=== PATIENT | male | born 1945 | race African-American/Black ===

== ENCOUNTER 2020-01-15 08:01 | Outpatient (CLI) | payer OTHER, SELFPAY ==
[2020-01-15 09:08] LABS: Hematocrit 34.2 % (42.0-52.0); Hemoglobin 11.3 g/dL (14.0-18.0); Mean Corpuscular Hemoglobin 28.2 pg (26-34); Mean Corpuscular Volume 85.3 fl (80-100); Mean Platelet Volume 10.4 fl (7.4-10.4); Platelet Count Result 267 k/mm3 (150-375); Red Blood Count 4.01 M/mm3 (4.6-6.20); Red Cell Distribution Width 13.7 % (11.5-14.5); White Blood Count 6.7 K/mm3 (4.5-10.0)
[2020-01-15 09:09] LABS: Alanine Aminotransferase 10 U/L (4-50); Albumin Level 4.1 g/dL (3.5-5.1); Alkaline Phosphatase 54 U/L (38-126); Aspartate Amino Transferase 17 U/L (17-59); Bilirubin,Total 0.5 mg/dL (0.2-1.3); Blood Urea Nitrogen 18 mg/dL (9-20); Calcium 8.7 mg/dL (8.4-10.2); Carbon Dioxide 24 mmol/L (22-30); Chloride 111 mmol/L (98-107); Cholesterol 240 mg/dL (0-200); Estimated Glomerular Filt Rate 51; Glucose 87 mg/dL (75-110); HDL Direct 36 mg/dL; Potassium 4.2 mmol/L (3.4-5.0); Sodium 141 mmol/L (137-145); Triglycerides 218 mg/dL (<150); Uric Acid 6.6 mg/dL (3.5-8.5)
[2020-01-15 09:20] LABS: LDL Cholesterol Direct 144 mg/dL
[2020-01-15 09:39] LABS: Prostate Specific Antigen 4.1 ng/mL (< OR = 4.0)
[2020-01-15 09:57] LABS: Vitamin D 25 Hydroxy 26.8 ng/mL
== END 2020-01-15 08:02 | disposition home or self-care (01) ==
PROVIDERS: PCP Internal Medicine; Visit Provider Nurse Practitioner
DX: D64.9 Anemia, unspecified (principal); E78.5 Hyperlipidemia, unspecified; N40.0 Benign prostatic hyperplasia without lower urinary tract symptoms; M1A.9XX0 Chronic gout, unspecified, without tophus (tophi); E55.9 Vitamin D deficiency, unspecified
CPT/HCPCS: 36415; 80053; 80061; 82306; 84153; 84550; 85027

== ENCOUNTER 2020-04-12 07:51 | Outpatient (CLI) | payer OTHER, SELFPAY ==
[2020-04-12 08:12] LABS: Hematocrit 33.6 % (42.0-52.0); Hemoglobin 11.4 g/dL (14.0-18.0)
[2020-04-12 08:25] LABS: Blood Urea Nitrogen 39 mg/dL (9-20); Calcium 8.7 mg/dL (8.4-10.2); Carbon Dioxide 22 mmol/L (22-30); Chloride 113 mmol/L (98-107); Cholesterol 249 mg/dL (0-200); Estimated Glomerular Filt Rate 37; Glucose 106 mg/dL (75-110); HDL Direct 43 mg/dL; Potassium 4.7 mmol/L (3.4-5.0); Sodium 141 mmol/L (137-145); Triglycerides 166 mg/dL (<150)
[2020-04-12 08:36] LABS: LDL Cholesterol Direct 149 mg/dL
[2020-04-12 08:53] LABS: Prostate Specific Antigen 4.6 ng/mL (< OR = 4.0)
[2020-04-12 09:23] LABS: Parathyroid Intact 122.5 pg/mL (7.5-53.5)
[2020-04-12 10:53] LABS: Vitamin D 25 Hydroxy 35.9 ng/mL
== END 2020-04-12 07:52 | disposition home or self-care (01) ==
LOC: ANHLAB 07:53
PROVIDERS: PCP Internal Medicine; Visit Provider Internal Medicine
DX: E78.5 Hyperlipidemia, unspecified (principal); E55.9 Vitamin D deficiency, unspecified; R97.20 Elevated prostate specific antigen [PSA]; D64.9 Anemia, unspecified; I12.9 Hypertensive chronic kidney disease with stage 1 through stage 4 chronic kidney disease, or unspecified chronic kidney disease; N18.3 Chronic kidney disease, stage 3 (moderate)
CPT/HCPCS: 36415; 80048; 80061; 82306; 82310; 83970; 84153; 85014; 85018

== ENCOUNTER 2020-05-19 02:24 | Outpatient (CLI) | payer OTHER, SELFPAY ==
[2020-05-19 18:38] LABS: SARS-CoV-2 RNA PCR Negative
== END 2020-05-19 02:25 | disposition home or self-care (01) ==
LOC: ANHCOVIDDT 02:24
PROVIDERS: PCP Internal Medicine; Visit Provider Internal Medicine Gastroenterology
DX: Z01.812 Encounter for preprocedural laboratory examination (principal); Z20.828 Contact with and (suspected) exposure to other viral communicable diseases
CPT/HCPCS: 87635; C9803; U0003

== ENCOUNTER 2020-05-21 00:25 | Day surgery (SDC) | payer OTHER, SELFPAY ==
[2020-05-12 14:21] VITALS: BMI 30.4
--- NOTE | 2020-05-21 07:33 | P.PNAN_ITS ---
Anes - Initial Pre Proc Eval Procedure: Operation Date: 05/21/20 09:00 Proposed Procedures p Screening Colonoscopy - José Stanton MD Date/Time: 05/21/20 07:33 Surgeon: José Stanton MD Pre Op Diagnosis: Neoplasm Screening Patient Data Age: 75 Gender: M Height: 1.7 m Weight: 88 kg Allergies Allergy/AdvReac Type Severity Reaction Status Date / Time No Known Allergies Allergy Mild Verified 05/21/20 07:39 Home Medications Medication Instructions Recorded Confirmed Type amlodipine 10 mg tablet See Rx Instructions .ROUTE 04/30/20 05/21/20 Rx .COMPLEX #90 tablet lisinopril 40 mg tablet See Rx Instructions .ROUTE 04/30/20 05/21/20 Rx .COMPLEX #90 tablet Patient hx anesthesia problems: none Family hx anesthesia problems: none PMFSH Past Medical History Medical History (Updated 05/21/20 @ 07:34 by Kuldeep Rodriguez MD) Anemia BPH w/o urinary obs/LUTS Chronic kidney disease, stage 3 Essential (primary) hypertension Gout, unspecified Mixed hyperlipidemia Obesity Tobacco use disorder Social History Social History Smoking status: Smoker, status unknown Smoking end date: 10/01/14 Alcohol intake: current Anes - Eval Final PreProcedure Day of Procedure 05/21/20 07:33 Patient weight: obese Heart: regular rate and rhythm Lungs: clear to auscultation and normal air movement Airway: Mallampati scale class II Neurological: alert and oriented Last oral intake: >/= 8 hours ASA classification: III Emergent: no Anesthetic plan: proceed Anesthesia type and monitoring: general GIVS Informed Consent: The patient's anesthetic plan and its attendant risks and benefits were discussed with the patient/family/POA. Questions were solicited and answers provided to the satisfaction of the patient/family/POA.
[2020-05-21 07:40] VITALS: BP 153/85; PULSE 98; RESP 18; TEMP 37.1; O2SAT 100
[2020-05-21] MEDS: LACTATED RINGERS 1,000 ML 150 ML IV CONT (07:50)
[2020-05-21 07:52] VITALS: BMI 28.0
--- NOTE | 2020-05-21 08:39 | P.HP_ITS ---
History of Present Illness History of Present Illness Consent: Risks, benefits, and alternatives have been discussed and questions answered. Patient agrees to proceed with procedure. Chief complaint: Neoplasm Screening Narrative: Tramaine Urban is a 75 year old male Here for screening colonoscopy. He had she had multiple large polyps in 2013. Current all but 1 was removed. That 1 was biopsied and consistent with a villous adenoma. Surgery was advised but apparently he declined. He was sent a letter for follow-up examination a year after that but did not respond. [facility] Past Medical History Medical History Anemia BPH w/o urinary obs/LUTS Chronic kidney disease, stage 3 Essential (primary) hypertension Gout, unspecified Mixed hyperlipidemia Obesity Tobacco use disorder Family History Family History Sibling Patient's sister is in good health Patient's brother is in good health Father Family history of malignant neoplasm Patient's father is Mother Family history of malignant neoplasm Patient's mother is Social History Social History Smoking status: Smoker, status unknown Smoking end date: 10/01/14 Alcohol intake: current Meds Home Medications and Allergies Home Medications Medication Instructions Recorded Confirmed Type amlodipine 10 mg tablet See Rx Instructions .ROUTE 04/30/20 05/21/20 Rx .COMPLEX #90 tablet lisinopril 40 mg tablet See Rx Instructions .ROUTE 04/30/20 05/21/20 Rx .COMPLEX #90 tablet Allergies Allergy/AdvReac Type Severity Reaction Status Date / Time No Known Allergies Allergy Mild Verified 05/21/20 07:39 Vital Signs Vital Signs - 24 hr 05/21/20 07:40 Temperature 37.1 C Pulse Rate 98 Respiratory Rate 18 Blood Pressure 153/85 H Pulse Oximetry 100 Exam Resp: Auscultation: clear to auscultation bilaterally Cardio: Rate: regular rate Rhythm: regular rhythm GI: GI Palp: Yes Soft to palpation and No Tenderness to palpation present (GI) Assessment and Plan Assessment and plan (1) Personal history of colonic polyps: Code(s): Z86.010 - Personal history of colonic polyps Status: Acute Assessment and Plan: Colonoscopy with possible biopsy or polypectomy or cautery or injection of substances.
--- NOTE | 2020-05-21 09:17 | SUR.OPER ---
RESOLUTION CLIP X1 TO DESCENDING COLON LOT [id number]
[2020-05-21 09:23] VITALS: BP 89/56; PULSE 66; RESP 32; O2SAT 100
[2020-05-21 09:33] VITALS: BP 115/68; PULSE 57; RESP 28; O2SAT 100
[2020-05-21 09:43] VITALS: BP 131/62; PULSE 59; RESP 25; O2SAT 100
== END 2020-05-21 09:58 | disposition home or self-care (01) ==
PROVIDERS: PCP Internal Medicine; Visit Provider Internal Medicine Gastroenterology
PROC: 0DJD8ZZ Inspection of Lower Intestinal Tract, Via Natural or Artificial Opening Endoscopic (ICD-10-PCS; CPT 45378; principal; 2020-05-21 09:00)
DX: Z12.11 Encounter for screening for malignant neoplasm of colon (principal); C18.6 Malignant neoplasm of descending colon; C18.5 Malignant neoplasm of splenic flexure; D12.3 Benign neoplasm of transverse colon; D12.5 Benign neoplasm of sigmoid colon; D12.2 Benign neoplasm of ascending colon; K64.8 Other hemorrhoids; I12.9 Hypertensive chronic kidney disease with stage 1 through stage 4 chronic kidney disease, or unspecified chronic kidney disease; N18.3 Chronic kidney disease, stage 3 (moderate); E78.2 Mixed hyperlipidemia; D64.9 Anemia, unspecified; M10.9 Gout, unspecified; N40.0 Benign prostatic hyperplasia without lower urinary tract symptoms; E66.9 Obesity, unspecified; Z68.28 Body mass index [BMI] 28.0-28.9, adult; Z87.891 Personal history of nicotine dependence
CPT/HCPCS: 45385; 45380; 45381; 88305; J2704; J7120

== ENCOUNTER 2021-02-15 08:22 | Outpatient (CLI) | payer OTHER, SELFPAY ==
[2021-02-15 09:04] LABS: Basophils Percent Auto 0.1 % (0.2-1.2); Eosinophils Percent Auto 0.3 % (0-4.4); Hemoglobin 11.2 g/dL (14.0-18.0); Immature Granulocyte Absolute 0.01 K/mm3 (0.00-0.031); Immature Granulocyte Percent A 0.1 % (0-0.5); Lymphocytes Absolute Auto 2.19 K/mm3 (0.9-3.2); Mean Corpuscular HGB Conc 32.9 g/dl (32-36); Mean Corpuscular Hemoglobin 28.1 pg (26-34); Mean Corpuscular Volume 85.2 fl (80-100); Mean Platelet Volume 9.8 fl (7.4-10.4); Monocytes Absolute Auto 0.5 K/mm3 (0.1-0.6); Monocytes Percent Auto 7.3 % (2.6-8.5); Neutrophils Absolute Auto 4.1 K/mm3 (1.3-6.7); Neutrophils Percent Auto 60.2 % (45.5-73.1); Platelet Count Result 269 k/mm3 (150-375); Red Blood Count 3.99 M/mm3 (4.6-6.20); White Blood Count 6.8 K/mm3 (4.5-10.0)
[2021-02-15 09:19] LABS: Sodium 143 mmol/L (137-145)
[2021-02-15 09:26] LABS: Alanine Aminotransferase 12 U/L (4-50); Albumin Level 4.1 g/dL (3.5-5.1); Alkaline Phosphatase 60 U/L (38-126); Anion Gap 4 mmol/L (8-16); Aspartate Amino Transferase 22 U/L (17-59); Bilirubin,Total 0.3 mg/dL (0.2-1.3); Blood Urea Nitrogen 28 mg/dL (9-20); Calcium 9.4 mg/dL (8.4-10.2); Carbon Dioxide 27 mmol/L (22-30); Chloride 112 mmol/L (98-107); Cholesterol 220 mg/dL (0-200); Estimated Glomerular Filt Rate 45; Glucose 67 mg/dL (75-110); HDL Direct 54 mg/dL; Potassium 4.5 mmol/L (3.4-5.0); Triglycerides 153 mg/dL (<150); Uric Acid 7.2 mg/dL (3.5-8.5)
[2021-02-15 09:31] LABS: LDL Cholesterol Direct 133 mg/dL
[2021-02-15 09:42] LABS: Parathyroid Intact 134.9 pg/mL (7.5-53.5)
[2021-02-15 09:49] LABS: Vitamin D 25 Hydroxy 20.1 ng/mL
[2021-02-15 09:51] LABS: Prostate Specific Antigen 5.2 ng/mL (< OR = 4.0)
== END 2021-02-15 08:23 | disposition home or self-care (01) ==
PROVIDERS: PCP Internal Medicine; Visit Provider Nurse Practitioner
DX: Z12.5 Encounter for screening for malignant neoplasm of prostate (principal); N18.30 Chronic kidney disease, stage 3 unspecified; R97.20 Elevated prostate specific antigen [PSA]; E78.2 Mixed hyperlipidemia; D64.9 Anemia, unspecified; M1A.9XX0 Chronic gout, unspecified, without tophus (tophi); E55.9 Vitamin D deficiency, unspecified
CPT/HCPCS: 36415; 80053; 80061; 82306; 83970; 84153; 84550; 85025; G0103

== ENCOUNTER 2021-11-16 18:34 | Inpatient (IN) | payer OTHER, SELFPAY ==
[2021-11-16] VITALS (31 sets, daily range): BP systolic 101–129; BP diastolic 49–59; PULSE 50–61; RESP 14–29; TEMP 36.6; O2SAT 80–100
--- NOTE | ~2021-11-16 | XR_ITS ---
EXAMINATION: XR chest 1V portable DATE: 11/16/2021 19:35 INDICATION: Cough. COVID positive. TECHNIQUE: frontal view of the chest was obtained. COMPARISON: None FINDINGS: Elevation of the left hemidiaphragm. Relatively dense opacity with sharply defined margins projecting over the azygos esophageal recess of the medial left lung base most likely related to either a hiata l hernia or thoracic endplate osteophytes related to diffuse idiopathic skeletal hyperostosis (DISH). Additional dense nodular opacity projecting over the more lateral left hemidiaphragm consistent with calcified old granulomatous disease. No other airspace opacities, pulmonary edema, pleural effusion or pneumothorax. The cardiomediastinal silhouette is normal. IMPRESSION: 1. No acute cardiopulmonary disease. Reviewed, dictated and finalized at location A. [employer]
--- NOTE | ~2021-11-16 | NM_ITS ---
EXAMINATION: NM pulmonary perfusion DATE: 11/16/2021 23:23 INDICATION: Dyspnea. TECHNIQUE: 2.9 mCi Tc-99m MAA by intravenous route. Scintigraphic images of the chest were obtained. COMPARISON: Chest radiograph dated 11/16/2021 FINDINGS: Large perfusion defect involving the posterior segment of the right upper lobe and posterior basilar segment of the right lower lobe. Moderate-sized perfusion defects at the lateral segment of the right middle lobe and small perfusion defect at the posterior basilar segment of the left lower lobe. IMPRESSION: 1. High probability for pulmonary embolism. Reviewed, dictated and finalized at location A. [employer]TE M[employer]ER
--- NOTE | ~2021-11-16 | CT_ITS ---
EXAMINATION: CT abdomen pelvis wo con DATE: 11/16/2021 21:24 INDICATION: Abdominal pain TECHNIQUE: Computed tomography (CT) of the abdomen and pelvis was performed without intravenous contr ast. Automated exposure control and iterative reconstruction technique were employed. The dose-length product was 460.89 mGy-cm. COMPARISON: None FINDINGS: Elevation of the left hemidiaphragm with mild discoid atelectasis in the left lower lobe. Heart size is normal. Atherosclerotic coronary artery calcific location. No pericardial or pleural effusion. Angela er, gallbladder, spleen, pancreas, bilateral adrenal glands and left kidney are normal. 2 cm cyst at the interpolar region of the right kidney. There is a diverting transverse colostomy at the midline o f the upper abdomen. Small bowel and appendix are normal. Bladder is normal. Small amount of ascites in the deep pelvis. No abscess or free intraperitoneal gas. No pathologically enlarged abdominal or p elvic lymphadenopathy. Diffuse body wall edema. There are bridging osteophytes at multiple levels in the spine, consistent with diffuse idiopathic skeletal hyperostosis (DISH). Heterotopic ossification along the left iliac crest. IMPRESSION: 1. Nonspecific small amount of ascites in the deep pelvis. No other acute intra-abdominal/pelvic proc ess. Reviewed, dictated and finalized at location A. [employer] IMPRESSION: 1. Nonspecific small amount of ascites in the deep pelvis. No other acute intra -abdominal/pelvic process.
[2021-11-16 20:42] LABS: Basophils Percent Auto 0.2 % (0.2-1.2); Eosinophils Percent Auto 0.4 % (0-4.4); Hematocrit 24.8 % (42.0-52.0); Hemoglobin 8.1 g/dL (14.0-18.0); Immature Granulocyte Absolute 0.01 K/mm3 (0.00-0.031); Immature Granulocyte Percent A 0.2 % (0-0.5); Lymphocytes Absolute Auto 1.79 K/mm3 (0.9-3.2); Lymphocytes Percent Auto 38.4 % (18.3-44.2); Mean Corpuscular HGB Conc 32.7 g/dl (32-36); Mean Corpuscular Hemoglobin 29.1 pg (26-34); Mean Corpuscular Volume 89.2 fl (80-100); Mean Platelet Volume 8.9 fl (7.4-10.4); Monocytes Absolute Auto 0.3 K/mm3 (0.1-0.6); Monocytes Percent Auto 6.2 % (2.6-8.5); Neutrophils Absolute Auto 2.5 K/mm3 (1.3-6.7); Neutrophils Percent Auto 54.6 % (45.5-73.1); Platelet Count Result 290 k/mm3 (150-375); Red Blood Count 2.78 M/mm3 (4.6-6.20); Red Cell Distribution Width 16.1 % (11.5-14.5); White Blood Count 4.7 K/mm3 (4.5-10.0)
[2021-11-16 20:52] LABS: Prothrombin Time 13.1 Seconds (11.1-14.7)
[2021-11-16 20:53] LABS: Partial Thromboplastin Time 34.4 SECONDS (22.3-36.8)
[2021-11-16 20:54] LABS: Alanine Aminotransferase 17 U/L (4-50); Alkaline Phosphatase 57 U/L (38-126); Anion Gap 9 mmol/L (8-16); Aspartate Amino Transferase 21 U/L (17-59); Bilirubin,Total 0.2 mg/dL (0.2-1.3); Blood Urea Nitrogen 34 mg/dL (9-20); Calcium 8.5 mg/dL (8.4-10.2); Carbon Dioxide 15 mmol/L (22-30); Chloride 119 mmol/L (98-107); Estimated CRCL calculation 29 ml/min; Estimated Glomerular Filt Rate 42; Glucose 103 mg/dL (65-110); Potassium 3.6 mmol/L (3.4-5.0); Sodium 143 mmol/L (137-145)
[2021-11-16 21:05] LABS: Platelet Estimate Adequate (Adequate)
[2021-11-16 21:06] LABS: Atypical Lymphocytes Present; Ovalocytes 1+ (NORMAL); Target Cells 1+ (NORMAL)
[2021-11-16 21:49] LABS: Add Urine Microscopic? YES; Appearance Urine Clear (Clear); Bilirubin Urine Negative (Negative); Blood Urine Negative (Negative); Color Urine Yellow (Yellow); Glucose Urine UA Negative (Negative); Ketones Urine Negative (Negative); Leukocyte Esterase Ur Negative LEU/UL (Negative); Nitrate Urine Negative (Negative); Protein Urine Negative (Negative); RBC Urine 0-2 /hpf (0-2); Specific Grav Ur 1.011 (1.001-1.035); Urobilinogen Urine Negative mg/dL (<2.0); WBC Urine 0-3 /hpf
[2021-11-17] VITALS (15 sets, daily range): BP systolic 103–164; BP diastolic 40–72; PULSE 53–64; RESP 16–26; TEMP 36.2–36.9; O2SAT 93–100
--- NOTE | 2021-11-17 00:04 | ECG_ITS ---
Measurements Intervals [place] Rate: 68 P: 23 ID: [id number] QRS: 54 QRSD: 89 T: 0 QT: 358 QTc: 381 Interpretive Statements SINUS RHYTHM NONSPECIFIC ST & T-WAVE ABNORMALITY- DIFFUSE LEADS BASELINE ARTIFACT- I, II, III, AVR, AVL, AVF, V1, V3-V6 BORDERLINE ECG Electronically Signed On 11-17-2021 8:58:41 [employer] by Ugo Moraes D.O.
--- NOTE | 2021-11-17 00:15 | ED.GENADULT ---
HPI - General Adult General Chief complaint: Unspecified Stated complaint: colostomy bag leaking Time Seen by Provider: 11/16/21 19:24 Source: RN notes reviewed History of Present Illness HPI narrative: Patient presents emergency department from [facility] via EMS for multiple complaints. Initial call was for patient's ostomy bag leaking as well as the fact that the patient was diagnosed with COVID-19 on the he had lab work drawn today that showed an elevated creatinine as well as anemia and an elevated D-dimer secondary to the elevated beta D-dimer the patient had had Eliquis ordered but is unsure if he had a dose patient denies any fevers or chills denies any chest pain or shortness of breath was recently at [facility] for a bowel obstruction denies any abdominal pain at this time Related Data Home Medications Medication Instructions Recorded Confirmed A To Z Multivitamin 11/16/21 Eucerin 11/16/21 Iron Plus Vitamin C 11/16/21 Metamucil 11/16/21 Zinc-50 11/16/21 apixaban [Eliquis] 2.5 mg PO BID 11/16/21 calcium carbonate [Oyster Shell 500 mg PO DAILY 11/16/21 Calcium] Allergies Allergy/AdvReac Type Severity Reaction Status Date / Time No Known Allergies Allergy Mild Verified 11/16/21 18:50 Review of Systems Review of Systems: Gen.: Denies fevers or chills ENT: Denies congestion Respiratory: Denies shortness of breath or cough CV: Denies chest pain or palpitations GI: Denies abdominal pain nausea, emesis or diarrhea Musculoskeletal: Denies back pain or muscle pain Neuro: Denies numbness, tingling, weakness or focal weakness Skin: Denies rash Except as documented, all other systems reviewed and negative [facility] Past Medical History Medical History (Updated 11/17/21 @ 02:35 by Barber Bowman DO) Anemia BPH w/o urinary obs/LUTS Chronic kidney disease, stage 3 Elevated parathyroid hormone Elevated PSA Essential (primary) hypertension Gout, unspecified Mixed hyperlipidemia Obesity Tobacco use disorder Family History Family History Sibling Patient's sister is in good health Patient's brother is in good health Father Family history of malignant neoplasm Patient's father is Mother Family history of malignant neoplasm Patient's mother is Social History Social History Smoking packs per day: 0.25 Smoking cigarettes per day: 5.0 Years smoked: 35 Smoking pack-years: 8.75 Smoking status: Current every day smoker Tobacco type: cigarettes Second hand tobacco smoke exposure: No Alcohol intake: former Substance use: never Exam Narrative: APPEARANCE: No acute distress, nontoxic, resting in bed EYES: EOMI HEENT: Normocephalic, atraumatic, OMM RESPIRATORY: No respiratory distress Clear to auscultation bilaterally with no rhonchi wheezing or rales. CARDIOVASCULAR: Regular rate and rhythm without murmurs rubs or gallops. ABDOMINAL: Soft, nontender, nondistended, no rebound or guarding ostomy present with output MUSCULOSKELETAl: Moves all extremities. No clubbing, cyanosis or edema. NEURO: Awake and alert. Following commands, speech normal, no focal deficits SKIN:: Warm, dry. No rashes lesions or abrasions PSYCHIATRIC: Normal affect/mood, Course Course Emergency Course: Reviewed old records and records [facility] patient had a hemoglobin of 9.1 on the 12th and 7.9 today patient's creatinines are normally in current range D-dimer was [address] Roblero is requesting VQ scan of the patient Discussed with Dr. Maldonado presentation work-up agrees with admission Discussed with patient and family results of workup and diagnosis. Discussed need for admission. Patient and family understand and agree to current treatment plan Called [facility] the patient did not receive any Eliquis today we will give Lo
--- NOTE | 2021-11-17 00:21 | PC.NURSE ---
VOICE MAIL LEFT TO CLARIFY IF THE PATIENT DID RECEIVE ELIQUIS TODAY OR NOT.
[2021-11-17] MEDS: ENOXAPARIN 80 MG/0.8 ML SYRINGE 72 MG SUB-Q (03:07)
--- NOTE | 2021-11-17 04:44 | ADMGEN ---
This patient, Tramaine Urban, was admitted to [facility] Surg Room 310-01. Patient/family oriented to hospital policies and general routines including ID bracelet, bed and alarms, visiting hours, pain management, procedures, bathroom and other care routines, personal items, smoking policy, room service/diet, and visiting hours. Information on how to activate the Rapid Response Team has been discussed. Patient/Family are encouraged to report perceived risks to care and to ask questions if they do not understand what they are told or what they should do.
[2021-11-17 07:08] LABS: Hematocrit 26.8 % (42.0-52.0); Hemoglobin 8.9 g/dL (14.0-18.0)
[2021-11-17 09:05] LABS: Hematocrit 26.9 % (42.0-52.0); Hemoglobin 8.9 g/dL (14.0-18.0); Mean Corpuscular HGB Conc 33.1 g/dl (32-36); Mean Corpuscular Volume 87.6 fl (80-100); Mean Platelet Volume 9.1 fl (7.4-10.4); Platelet Count Result 277 k/mm3 (150-375); Red Blood Count 3.07 M/mm3 (4.6-6.20); Red Cell Distribution Width 16.1 % (11.5-14.5); White Blood Count 4.8 K/mm3 (4.5-10.0)
[2021-11-17 09:17] LABS: Albumin Level 3.1 g/dL (3.5-5.1); Anion Gap 7 mmol/L (8-16); Blood Urea Nitrogen 32 mg/dL (9-20); Calcium 8.6 mg/dL (8.4-10.2); Carbon Dioxide 16 mmol/L (22-30); Chloride 120 mmol/L (98-107); Estimated CRCL calculation 26 ml/min; Estimated Glomerular Filt Rate 45; Glucose 80 mg/dL (65-110); Magnesium 1.9 mg/dL (1.6-2.3); Phosphorus 3.5 mg/dL (2.5-4.5); Potassium 3.1 mmol/L (3.4-5.0); Sodium 143 mmol/L (137-145)
[2021-11-17 09:46] LABS: INR 1.1; Prothrombin Time 13.6 Seconds (11.1-14.7)
[2021-11-17] MEDS: CALCIUM CARBONATE (OSCAL) 500 MG TABLET PO (10:15)
[2021-11-17] MEDS: allopurinoL 100 MG TABLET PO (10:15)
[2021-11-17] MEDS: SODIUM BICARBONATE TAB 650 MG TABLET PO ×2 (10:16→17:08)
[2021-11-17] MEDS: MULTIVITAMINS THERAPEUTIC TAB (*BKC) 1 TABLET PO (10:16)
[2021-11-17] MEDS: EUCERIN CREAM 120 GM JAR 1 APPLIC TOPICAL ×3 (10:16→17:08)
[2021-11-17] MEDS: REMDESIVIR 200 MG/NS 250 ML 200 MG/250 ML BAG 250 MG IVPB (10:16)
[2021-11-17] MEDS: PSYLLIUM POWDER PACKET 1 PACKET BY MOUTH (10:16)
[2021-11-17] MEDS: ZINC SULFATE 220 MG CAPSULE PO (10:16)
[2021-11-17] MEDS: SODIUM CHLORIDE 0.9% IV 1,000 ML 100 ML IV CONT ×2 (10:17→21:23)
[2021-11-17 10:40] LABS: Hematocrit 23.1 % (42.0-52.0); Hemoglobin 7.7 g/dL (14.0-18.0)
--- NOTE | 2021-11-17 14:19 | PM.IMHP ---
H&P: HPI History of Present Illness Date/Time: 11/17/21 14:19 ED-HPI narrative: Patient presents emergency department from [facility] via EMS for multiple complaints. Initial call was for patient's ostomy bag leaking as well as the fact that the patient was diagnosed with COVID-19 on the he had lab work drawn today that showed an elevated creatinine as well as anemia and an elevated D-dimer secondary to the elevated beta D-dimer the patient had had Eliquis ordered but is unsure if he had a dose patient denies any fevers or chills denies any chest pain or shortness of breath was recently at [facility] for a bowel obstruction denies any abdominal pain at this time. 11/17/2021 Interval history: patient with COVID-19 he is on room air does not require any oxygen, will start the patient remdesivir, Patient remains clinically stable, there was a concern patient is a colostomy bag patient was seen by wound care team spoke with the surgeon it was corrected about the bag is sealed, patient has a shama which do not need to be removed for another 6 weeks, patient is found to have pulmonary emboli in being treated Lovenox, patient was started on Eliquis, patient has a metabolic acidosis most likely secondary to acute kidney injury will gently hydrate the patient will start the patient on sodium bicarb and monitor, patient with anemia hemoglobin is dropping there is no obvious source of bleeding, will do stool Hemoccult, consult GI further recommendation to follow. Chief Complaint: COVID-19 Review of Systems Review of Systems: All systems reviewed & are unremarkable except as noted in HPI and below PMFSH Past Medical History Medical History (Updated 11/17/21 @ 02:35 by Barber Bowman DO) Anemia BPH w/o urinary obs/LUTS Chronic kidney disease, stage 3 Elevated parathyroid hormone Elevated PSA Essential (primary) hypertension Gout, unspecified Mixed hyperlipidemia Obesity Tobacco use disorder Family History Family History Sibling Patient's sister is in good health Patient's brother is in good health Father Family history of malignant neoplasm Patient's father is Mother Family history of malignant neoplasm Patient's mother is Social History Social History Smoking packs per day: 0.25 Smoking cigarettes per day: 5.0 Years smoked: 35 Smoking pack-years: 8.75 Smoking status: Smoker, status unknown Tobacco type: cigarettes Second hand tobacco smoke exposure: No Alcohol intake: former Substance use: unknown Spiritual care concerns: No Meds Home Medications and Allergies Home Medications Medication Instructions Recorded Confirmed Type allopurinol 100 mg tablet 100 mg PO DAILY #90 tablet 07/11/21 11/17/21 Rx A To Z Multivitamin 1 tablet PO DAILY 11/16/21 11/17/21 History Eucerin 1 applic TOPICAL TID 11/16/21 11/17/21 History Metamucil 3.4 g PO DAILY 11/16/21 11/17/21 History Zinc-50 50 mg PO DAILY 11/16/21 11/17/21 History apixaban [Eliquis] 2.5 mg PO BID 11/16/21 11/17/21 History calcium carbonate [Oyster Shell 500 mg PO DAILY 11/16/21 11/17/21 History Calcium] Allergies Allergy/AdvReac Type Severity Reaction Status Date / Time No Known Allergies Allergy Mild Verified 11/16/21 18:50 Vital Signs Vital Signs - 24 hr 11/16/21 18:47 11/16/21 18:48 11/16/21 19:00 Temperature 97.8 F Pulse Rate 60 59 L 57 L Respiratory Rate 28 H 24 H 24 H Blood Pressure 122/54 L 122/54 L Pulse Oximetry 100 100 100 11/16/21 19:01 11/16/21 19:15 11/16/21 19:16 Temperature Pulse Rate 59 L 56 L 56 L Respiratory Rate 28 H 29 H 24 H Blood Pressure 112/59 L 101/49 L Pulse Oximetry 100 100 100 11/16/21 19:30 11/16/21 19:32 11/16/21 19:45 Temperature Pulse Rate 60 61 57 L Respiratory Rate 18 26 H 26 H Blood Pressure 104/55 L Pulse
[2021-11-17] MEDS: ENOXAPARIN 80 MG/0.8 ML SYRINGE 70 MG SUB-Q (15:47)
[2021-11-17 16:43] LABS: Iron 34 ug/dL (49-181)
[2021-11-17 16:52] LABS: Percent Iron Saturation 20 % (20-50)
[2021-11-17 17:13] LABS: Folic Acid 9.5 ng/mL (2.76->20)
[2021-11-17 18:45] LABS: Hematocrit 20.8 % (42.0-52.0)
[2021-11-17 19:00] LABS: IFOB Positive Control Positive; Immunochemical Fecal Occult Bl Positive (N)
[2021-11-18] VITALS (15 sets, daily range): BP systolic 98–152; BP diastolic 44–69; PULSE 44–96; RESP 16–19; TEMP 36.4–37.2; O2SAT 94–100
[2021-11-18] MEDS: ENOXAPARIN 80 MG/0.8 ML SYRINGE 70 MG SUB-Q ×2 (02:30→15:59)
--- NOTE | 2021-11-18 04:33 | ECG_ITS ---
Measurements Intervals [place] Rate: 54 P: 73 MD: 173 QRS: 52 QRSD: 90 T: 262 QT: 382 QTc: 363 Interpretive Statements SINUS BRADYCARDIA BORDERLINE ST-T WAVE ABNORMALITY- INF/HIGH LAT LEADS BASELINE ARTIFACT- I, II, III, AVR, AVF BORDERLINE ECG Electronically Signed On 11-18-2021 8:00:22 [employer] PROJECT COORDINATOR by Ugo Moraes D.O.
--- NOTE | 2021-11-18 04:36 | PC.NURSE ---
clinical research monitor shows sinus bradycardia 40's - 50's , pt asymptomatic. Place call to Dr. Hilario , new order received.
--- NOTE | 2021-11-18 06:01 | PC.NURSE ---
[address] Hilario of EKG results, no new orders received.
[2021-11-18 06:17] LABS: Basophils Percent Auto 0.2 % (0.2-1.2); Eosinophils Percent Auto 0.2 % (0-4.4); Hematocrit 29.4 % (42.0-52.0); Hemoglobin 9.7 g/dL (14.0-18.0); Immature Granulocyte Absolute 0.01 K/mm3 (0.00-0.031); Immature Granulocyte Percent A 0.2 % (0-0.5); Mean Corpuscular Hemoglobin 28.8 pg (26-34); Mean Corpuscular Volume 87.2 fl (80-100); Mean Platelet Volume 8.6 fl (7.4-10.4); Monocytes Absolute Auto 0.3 K/mm3 (0.1-0.6); Monocytes Percent Auto 7.6 % (2.6-8.5); Neutrophils Percent Auto 48.8 % (45.5-73.1); Platelet Count Result 267 k/mm3 (150-375); Red Blood Count 3.37 M/mm3 (4.6-6.20); Red Cell Distribution Width 15.8 % (11.5-14.5); White Blood Count 4.2 K/mm3 (4.5-10.0)
[2021-11-18 06:30] LABS: Albumin Level 2.9 g/dL (3.5-5.1); Anion Gap 5 mmol/L (8-16); Blood Urea Nitrogen 28 mg/dL (9-20); Calcium 8.5 mg/dL (8.4-10.2); Carbon Dioxide 16 mmol/L (22-30); Chloride 121 mmol/L (98-107); Estimated CRCL calculation 27 ml/min; Estimated Glomerular Filt Rate 48; Glucose 77 mg/dL (65-110); Phosphorus 3.4 mg/dL (2.5-4.5); Potassium 3.2 mmol/L (3.4-5.0); Sodium 142 mmol/L (137-145)
[2021-11-18 06:41] LABS: INR 1.2; Prothrombin Time 14.3 Seconds (11.1-14.7)
[2021-11-18 08:09] LABS: Alanine Aminotransferase 12 U/L (4-50)
[2021-11-18] MEDS: SODIUM CHLORIDE 0.9% IV 1,000 ML 100 ML IV CONT ×2 (10:10→21:02)
[2021-11-18] MEDS: ZINC SULFATE 220 MG CAPSULE PO (10:12)
[2021-11-18] MEDS: allopurinoL 100 MG TABLET PO (10:12)
[2021-11-18] MEDS: MULTIVITAMINS THERAPEUTIC TAB (*BKC) 1 TABLET PO (10:12)
[2021-11-18] MEDS: PSYLLIUM POWDER PACKET 1 PACKET BY MOUTH (10:12)
[2021-11-18] MEDS: CALCIUM CARBONATE (OSCAL) 500 MG TABLET PO (10:12)
[2021-11-18] MEDS: SODIUM BICARBONATE TAB 650 MG TABLET PO ×2 (10:13→15:59)
[2021-11-18] MEDS: EUCERIN CREAM 120 GM JAR 1 APPLIC TOPICAL ×3 (10:13→16:02)
--- NOTE | 2021-11-18 10:46 | WPDGICN ---
Assessment and Plan Assessment and plan (1) Anemia: Code(s): D64.9 - Anemia, unspecified Status: Acute Assessment and Plan: his anemia may be due in part to his chronic kidney disease, As well as the fact that he has carcinoma of the colon. There is no evidence no of gastrointestinal bleeding and his colostomy bag discharge is bilious (2) Adenocarcinoma of descending colon: Code(s): C18.6 - Malignant neoplasm of descending colon Status: Acute Assessment and Plan: As mentioned above he has had a colon mass since 2003, declined surgery and he had 2 adenocarcinoma was identified in 2019 for which he again was referred to surgery that he did not follow up on. a few weeks ago he presented to [facility] with intestinal obstruction for which a loop colostomy was performed surgical referral needs to be placed at some point for consideration of removing his obstructing neoplasms (3) Pulmonary embolism: Code(s): I26.99 - Other pulmonary embolism without acute cor pulmonale Status: Acute Assessment and Plan: he was on Eliquis prior to admission and now is on Lovenox. (4) Personal history of colonic polyps: Code(s): Z86.010 - Personal history of colonic polyps Status: Acute Assessment and Plan: He has had several large polyps removed in 2003 and 2019 (5) Chronic kidney disease, stage 3: Code(s): N18.3 - Chronic kidney disease, stage 3 (moderate) Status: Acute (6) Colostomy in place: Code(s): Z93.3 - Colostomy status Status: Acute (7) COVID-19: Code(s): U07.1 - COVID-19 Status: Acute Additional Plan this was placed 2 weeks ago at [facility] because of obstructing neoplasm in left colon GI Consult Note Consult date/time: 11/18/21 10:46 HPI: Tramaine Urban is a 76 year old male Who was admitted here 2 days ago with several complaints. He had been complaining about a colostomy bag that was leaking but also was recently found to have COVID 19. In the emergency room of his CT angiogram was done that showed pulmonary embolism. He also was found to have a low hemoglobin, 7.9 compared to 9.1 week or so previously. The patient had recently been hospitalized at [facility] with intestinal obstruction and not having a bowel movement for a week or so. He had been losing weight as well. He was found to have on CT scan an obstructive process in the sigmoid colon, a mass 2 cm diameter consistent with an annular malignancy. Interestingly the CT scan here does not show a mass. This patient was found to have a mass in the area the splenic flexure which was was too large to remove during colonoscopy and he was referred to surgery. He came to see me 5 years later for follow-up colonoscopy . He states he never had surgery and he said he assumed that I had removed that tumor. On the colonoscopy in 2019 he had not only the splenic flexure mass but 1 in the descending colon, probably the 1 that is seen now on CT scan at [place]; he also has had several large polyps that I did remove. In 2019 he was referred to surgery and I had given him the name of Dr. Arenas and Roni. he admits that he did never see them. Consequently he has had masses in his left colon for nearly 7 years now. When he presented to [facility] with intestinal obstruction he was taken to surgery where transverse colon loop colostomy was performed on November 01. I should add that the 2 left colon masses were both positive for adenocarcinoma when biopsied 2 years ago. And both lesions were tattooed. He has been residing at [place]. I note that he has been on Eliquis but I am not certain why. Despite that in fact he is found now to have pulmonary embolism Review of Systems Review of Systems: All systems reviewed & are unremarkable except as noted in HPI and below PMFSH Pas
[2021-11-18] MEDS: REMDESIVIR 100 MG/NS 250 ML 100 MG/250 ML BAG 250 MG IVPB (11:16)
--- NOTE | 2021-11-18 15:12 | PM.IMPN ---
Progress Note: A&P Assessment and Plan (1) COVID-19: Code(s): U07.1 - COVID-19 Status: Acute Assessment and Plan: 11/17/2021 Interval history: patient with COVID-19 he is on room air does not require any oxygen, will start the patient remdesivir, Patient remains clinically stable, there was a concern patient is a colostomy bag patient was seen by wound care team spoke with the surgeon it was corrected about the bag is sealed, patient has a shama which do not need to be removed for another 6 weeks, patient is found to have pulmonary emboli in being treated Lovenox, patient was started on Eliquis, patient has a metabolic acidosis most likely secondary to acute kidney injury will gently hydrate the patient will start the patient on sodium bicarb and monitor, patient with anemia hemoglobin is dropping there is no obvious source of bleeding, will do stool Hemoccult, consult GI further recommendation to follow. 11/18/2021 Interval history: patient with COVID-19 he is on room air does not require any oxygen, will start the patient remdesivir, Patient remains clinically stable, there was a concern patient is a colostomy bag patient was seen by wound care team spoke with the surgeon it was corrected and the bag is now sealed, patient has a shama which do not need to be removed for another 6 weeks, patient is found to have pulmonary emboli in being treated Lovenox, patient was started on Eliquis, patient has a metabolic acidosis most likely secondary to acute kidney injury will gently hydrate the patient will start the patient on sodium bicarb and monitor, patient with anemia hemoglobin is dropping there is no obvious source of bleeding, however patient has colon cancer and patient was seen by GI further recommendation to follow. patient with multiple acute and chronic medical problems will stay in the hospital 2 midnights (2) Pulmonary embolism: Code(s): I26.99 - Other pulmonary embolism without acute cor pulmonale Status: Acute Assessment and Plan: patient with a pulmonary emboli currently patient on Lovenox, there is also concern for possible GI bleed, consult GI, will continue to monitor and further recommendation to follow. (3) Anemia: Code(s): D64.9 - Anemia, unspecified Status: Acute Assessment and Plan: patient with anemia etiology uncertain with stool Hemoccult, will trend the hemoglobin, will consult GI for further recommendation. (4) Essential (primary) hypertension: Code(s): I10 - Essential (primary) hypertension Status: Acute Assessment and Plan: will continue home regimen and monitor (5) Chronic kidney disease, stage 3: Code(s): N18.3 - Chronic kidney disease, stage 3 (moderate) Status: Acute Assessment and Plan: patient with acute on chronic kidney disease will gently hydrate the patient and monitor kidney function Subjective Date/time seen: 11/18/21 15:12 11/18/2021 Interval history: patient with COVID-19 he is on room air does not require any oxygen, will start the patient remdesivir, Patient remains clinically stable, there was a concern patient is a colostomy bag patient was seen by wound care team spoke with the surgeon it was corrected and the bag is now sealed, patient has a shama which do not need to be removed for another 6 weeks, patient is found to have pulmonary emboli in being treated Lovenox, patient was started on Eliquis, patient has a metabolic acidosis most likely secondary to acute kidney injury will gently hydrate the patient will start the patient on sodium bicarb and monitor, patient with anemia hemoglobin is dropping there is no obvious source of bleeding, however patient has colon cancer and patient was seen by GI further recommendation to follow. Review of Systems Review of Systems: All systems reviewed & are unremarkable except as noted in HPI and below Exam Narrative: Patient is comforta
[2021-11-19] VITALS (7 sets, daily range): BP systolic 135–143; BP diastolic 55–72; PULSE 50–75; RESP 16–18; TEMP 36.6–36.9; O2SAT 90–100
[2021-11-19] MEDS: ENOXAPARIN 80 MG/0.8 ML SYRINGE 70 MG SUB-Q ×2 (03:16→15:44)
[2021-11-19] MEDS: SODIUM CHLORIDE 0.9% IV 1,000 ML 100 ML IV CONT (06:21)
[2021-11-19 07:16] LABS: Hematocrit 26.8 % (42.0-52.0); Mean Corpuscular HGB Conc 33.6 g/dl (32-36); Mean Corpuscular Hemoglobin 28.4 pg (26-34); Mean Corpuscular Volume 84.5 fl (80-100); Mean Platelet Volume 9.1 fl (7.4-10.4); Platelet Count Result 257 k/mm3 (150-375); Red Blood Count 3.17 M/mm3 (4.6-6.20); Red Cell Distribution Width 15.9 % (11.5-14.5); White Blood Count 4.5 K/mm3 (4.5-10.0)
[2021-11-19 07:26] LABS: Alanine Aminotransferase 10 U/L (4-50); Albumin Level 2.6 g/dL (3.5-5.1); Anion Gap 6 mmol/L (8-16); Blood Urea Nitrogen 25 mg/dL (9-20); Calcium 8.1 mg/dL (8.4-10.2); Carbon Dioxide 15 mmol/L (22-30); Chloride 120 mmol/L (98-107); Estimated CRCL calculation 27 ml/min; Estimated Glomerular Filt Rate 48; Glucose 65 mg/dL (65-110); Phosphorus 3.2 mg/dL (2.5-4.5); Sodium 141 mmol/L (137-145)
[2021-11-19 07:27] LABS: INR 1.2
[2021-11-19] MEDS: SODIUM BICARBONATE TAB 650 MG TABLET PO (08:45)
[2021-11-19] MEDS: MULTIVITAMINS THERAPEUTIC TAB (*BKC) 1 TABLET PO (08:45)
[2021-11-19] MEDS: allopurinoL 100 MG TABLET PO (08:45)
[2021-11-19] MEDS: ZINC SULFATE 220 MG CAPSULE PO (08:45)
[2021-11-19] MEDS: PSYLLIUM POWDER PACKET 1 PACKET BY MOUTH (08:45)
[2021-11-19] MEDS: CALCIUM CARBONATE (OSCAL) 500 MG TABLET PO (08:45)
[2021-11-19] MEDS: EUCERIN CREAM 120 GM JAR 1 APPLIC TOPICAL ×2 (08:46→14:14)
[2021-11-19] MEDS: REMDESIVIR 100 MG/NS 250 ML 100 MG/250 ML BAG 250 MG IVPB (10:33)
--- NOTE | 2021-11-19 10:45 | PM.DS ---
DS: Admitting Diagnosis Discharge Date 11/19/2021 Admitting Diagnosis COVID-19 DS: Discharge Diagnosis Discharge Diagnosis (1) COVID-19: Code(s): U07.1 - COVID-19 Status: Acute Assessment and Plan: 11/17/2021 Interval history: patient with COVID-19 he is on room air does not require any oxygen, will start the patient remdesivir, Patient remains clinically stable, there was a concern patient is a colostomy bag patient was seen by wound care team spoke with the surgeon it was corrected about the bag is sealed, patient has a shama which do not need to be removed for another 6 weeks, patient is found to have pulmonary emboli in being treated Lovenox, patient was started on Eliquis, patient has a metabolic acidosis most likely secondary to acute kidney injury will gently hydrate the patient will start the patient on sodium bicarb and monitor, patient with anemia hemoglobin is dropping there is no obvious source of bleeding, will do stool Hemoccult, consult GI further recommendation to follow. 11/18/2021 Interval history: patient with COVID-19 he is on room air does not require any oxygen, will start the patient remdesivir, Patient remains clinically stable, there was a concern patient is a colostomy bag patient was seen by wound care team spoke with the surgeon it was corrected and the bag is now sealed, patient has a shama which do not need to be removed for another 6 weeks, patient is found to have pulmonary emboli in being treated Lovenox, patient was started on Eliquis, patient has a metabolic acidosis most likely secondary to acute kidney injury will gently hydrate the patient will start the patient on sodium bicarb and monitor, patient with anemia hemoglobin is dropping there is no obvious source of bleeding, however patient has colon cancer and patient was seen by GI further recommendation to follow. patient with multiple acute and chronic medical problems will stay in the hospital 2 midnights (2) Pulmonary embolism: Code(s): I26.99 - Other pulmonary embolism without acute cor pulmonale Status: Acute Assessment and Plan: patient with a pulmonary emboli currently patient on Lovenox, there is also concern for possible GI bleed, consult GI, will continue to monitor and further recommendation to follow. (3) Anemia: Code(s): D64.9 - Anemia, unspecified Status: Acute Assessment and Plan: patient with anemia etiology uncertain with stool Hemoccult, will trend the hemoglobin, will consult GI for further recommendation. (4) Essential (primary) hypertension: Code(s): I10 - Essential (primary) hypertension Status: Acute Assessment and Plan: will continue home regimen and monitor (5) Chronic kidney disease, stage 3: Code(s): N18.3 - Chronic kidney disease, stage 3 (moderate) Status: Acute Assessment and Plan: patient with acute on chronic kidney disease will gently hydrate the patient and monitor kidney function DS: Summary Hospital Course Reason for hospitalization: ED-HPI narrative: Patient presents emergency department from [facility] via EMS for multiple complaints. Initial call was for patient's ostomy bag leaking as well as the fact that the patient was diagnosed with COVID-19 on the he had lab work drawn today that showed an elevated creatinine as well as anemia and an elevated D-dimer secondary to the elevated beta D-dimer the patient had had Eliquis ordered but is unsure if he had a dose patient denies any fevers or chills denies any chest pain or shortness of breath was recently at [facility] for a bowel obstruction denies any abdominal pain at this time. 11/17/2021 Interval history: patient with COVID-19 he is on room air does not require any oxygen, will start the patient remdesivir, Patient remains clinically stable, there was a concern patient is a colostomy bag patient was seen by wound care team spoke with the surgeon
[2021-11-19] MEDS: POTASSIUM CHLORIDE 20 MEQ PACKET (FOR LIQUID) 40 MEQ PO (11:06)
--- NOTE | 2021-11-19 13:09 | PC.NURSE ---
Called report to NARA Perez at [facility]. Faxed discharge instructions and discharge med list to [phone]. Informed Chris patient's nephew will bring patient later today between the times of [id number]. Chris verbalized understanding.
== END 2021-11-19 16:35 | DRG 177 ==
LOC: ANHED 11-17 02:35 → ANH3MEDSUR 11-17 02:51
PROVIDERS: Admitting Provider Internal Medicine; Emergency Provider Emergency Medicine; PCP Family Medicine; Visit Provider Family Medicine
DX: U07.1 COVID-19 (principal); I26.99 Other pulmonary embolism without acute cor pulmonale; N17.9 Acute kidney failure, unspecified; C18.6 Malignant neoplasm of descending colon; D63.1 Anemia in chronic kidney disease; I12.9 Hypertensive chronic kidney disease with stage 1 through stage 4 chronic kidney disease, or unspecified chronic kidney disease; N18.30 Chronic kidney disease, stage 3 unspecified; M10.9 Gout, unspecified; N40.0 Benign prostatic hyperplasia without lower urinary tract symptoms; F17.210 Nicotine dependence, cigarettes, uncomplicated; Z43.3 Encounter for attention to colostomy; Z86.010 Personal history of colon polyps; Z79.01 Long term (current) use of anticoagulants
CPT/HCPCS: 36415; 36430; 71045; 74176; 78580; 80053; 80069; 81001; 82274; 82607; 82728; 82746; 83540; 83550; 83735; 84460; 85014; 85018; 85025; 85027; 85610; 85730; 86850; 86900; 86901; 86920; 93005; 96361; 96365; 96366; 96372; 97161; 97165; 99291; A9270; A9540; G0378; J1650; J7030; P9016

== ENCOUNTER 2021-12-21 15:20 | Outpatient (CLI) | payer OTHER, SELFPAY ==
[2021-12-21 16:54] LABS: Basophils Percent Auto 0.2 % (0.2-1.2); Eosinophils Absolute Auto 0.1 K/mm3 (0-0.3); Eosinophils Percent Auto 0.9 % (0-4.4); Hematocrit 26.1 % (42.0-52.0); Hemoglobin 8.4 g/dL (14.0-18.0); Immature Granulocyte Absolute 0.01 K/mm3 (0.00-0.031); Immature Granulocyte Percent A 0.2 % (0-0.5); Lymphocytes Absolute Auto 2.16 K/mm3 (0.9-3.2); Lymphocytes Percent Auto 37.6 % (18.3-44.2); Mean Corpuscular HGB Conc 32.2 g/dl (32-36); Mean Corpuscular Hemoglobin 28.7 pg (26-34); Mean Corpuscular Volume 89.1 fl (80-100); Mean Platelet Volume 10.1 fl (7.4-10.4); Monocytes Absolute Auto 0.4 K/mm3 (0.1-0.6); Monocytes Percent Auto 6.6 % (2.6-8.5); Neutrophils Absolute Auto 3.1 K/mm3 (1.3-6.7); Neutrophils Percent Auto 54.5 % (45.5-73.1); Platelet Count Result 273 k/mm3 (150-375); Red Blood Count 2.93 M/mm3 (4.6-6.20); Red Cell Distribution Width 15.7 % (11.5-14.5); White Blood Count 5.7 K/mm3 (4.5-10.0)
[2021-12-21 17:26] LABS: Alanine Aminotransferase 10 U/L (4-50); Albumin Level 3.8 g/dL (3.5-5.1); Alkaline Phosphatase 50 U/L (38-126); Anion Gap 4 mmol/L (8-16); Aspartate Amino Transferase 20 U/L (17-59); Bilirubin,Total 0.2 mg/dL (0.2-1.3); Blood Urea Nitrogen 23 mg/dL (9-20); Calcium 8.7 mg/dL (8.4-10.2); Carbon Dioxide 23 mmol/L (22-30); Chloride 115 mmol/L (98-107); Cholesterol 210 mg/dL (0-200); Estimated Glomerular Filt Rate 45; Glucose 78 mg/dL (65-110); HDL Direct 55 mg/dL; Potassium 4.2 mmol/L (3.4-5.0); Sodium 142 mmol/L (137-145); Triglycerides 161 mg/dL (<150); Uric Acid 5.5 mg/dL (3.5-8.5)
[2021-12-21 17:37] LABS: LDL Cholesterol Direct 95 mg/dL
[2021-12-21 18:17] LABS: Vitamin D 25 Hydroxy 23.1 ng/mL
[2021-12-21 19:57] LABS: Prostate Specific Antigen 4.6 ng/mL (< OR = 4.0)
[2021-12-30 15:44] LABS: Parathyroid Hormone Related Pr 15 pg/mL (11-20)
== END 2021-12-21 15:21 | disposition home or self-care (01) ==
LOC: ANHLAB 15:27
PROVIDERS: PCP Family Medicine; Visit Provider Nurse Practitioner
DX: R97.20 Elevated prostate specific antigen [PSA] (principal); N18.30 Chronic kidney disease, stage 3 unspecified; E78.2 Mixed hyperlipidemia; M1A.9XX0 Chronic gout, unspecified, without tophus (tophi); E55.9 Vitamin D deficiency, unspecified; D64.9 Anemia, unspecified; E34.9 Endocrine disorder, unspecified
CPT/HCPCS: 36415; 80053; 80061; 82306; 83519; 84153; 84550; 85025

== ENCOUNTER 2022-09-12 08:42 | Outpatient (CLI) | payer OTHER, SELFPAY ==
[2022-09-12 09:08] LABS: Basophils Percent Auto 0.3 % (0.2-1.2); Eosinophils Percent Auto 0.6 % (0-4.4); Hematocrit 29.3 % (42.0-52.0); Hemoglobin 9.5 g/dL (14.0-18.0); Immature Granulocyte Absolute 0.01 K/mm3 (0.00-0.031); Immature Granulocyte Percent A 0.3 % (0-0.5); Lymphocytes Absolute Auto 1.48 K/mm3 (0.9-3.2); Lymphocytes Percent Auto 42.2 % (18.3-44.2); Mean Corpuscular HGB Conc 32.4 g/dl (32-36); Mean Corpuscular Hemoglobin 26.9 pg (26-34); Mean Platelet Volume 9.2 fl (7.4-10.4); Monocytes Absolute Auto 0.2 K/mm3 (0.1-0.6); Monocytes Percent Auto 6.8 % (2.6-8.5); Neutrophils Absolute Auto 1.8 K/mm3 (1.3-6.7); Neutrophils Percent Auto 49.8 % (45.5-73.1); Platelet Count Result 196 k/mm3 (150-375); Red Blood Count 3.53 M/mm3 (4.6-6.20); Red Cell Distribution Width 14.1 % (11.5-14.5); White Blood Count 3.5 K/mm3 (4.5-10.0)
[2022-09-12 09:20] LABS: Cholesterol 221 mg/dL (0-200); HDL Direct 55 mg/dL; Triglycerides 123 mg/dL (<150)
[2022-09-12 09:30] LABS: Iron 46 ug/dL (49-181); LDL Cholesterol Direct 102 mg/dL
[2022-09-12 09:42] LABS: Percent Iron Saturation 19 % (20-50)
[2022-09-12 09:50] LABS: Prostate Specific Antigen 6.7 ng/mL (< OR = 4.0)
== END 2022-09-12 08:43 | disposition home or self-care (01) ==
LOC: ANHLAB 08:48
PROVIDERS: PCP Internal Medicine; Visit Provider Internal Medicine
DX: D64.9 Anemia, unspecified (principal); R97.20 Elevated prostate specific antigen [PSA]; E78.5 Hyperlipidemia, unspecified
CPT/HCPCS: 36415; 80061; 82728; 83540; 83550; 84153; 85025

== ENCOUNTER 2024-03-17 12:11 | Outpatient (CLI) | payer OTHER, SELFPAY ==
--- NOTE | ~2024-03-17 | CT_ITS ---
CT brain wo con Ordering provider: Aníbal Boyce MD History: 79 years Male with . R29.90 - Unspecified symptoms and signs involving the ner... . Comparison: None. Technique: CT of the head without contrast. Radiation reduction technique utilized. DLP is 681 mGy. FINDINGS: BRAIN PARENCHYMA AND CSF SPACES: Encephalomalacia in the left posterior frontal area is seen. Deep wh ite matter ischemic changes with mild brain atrophy is noted. Slightly hyperdense Mass seen in the le ft anterior frontal area which is dural based suggestive of meningioma. MRI evaluation or CT with con trast is advised. This area measures 4.6 x 4.9 x 1.2 cm. No midline shift, mass effect or hemorrhage. The brain parenchyma and CSF spaces are otherwise normal. VISUALIZED PARANASAL SINUSES: Well aerated. MASTOIDS: Well aerated. BONES: The bones appear intact. SOFT TISSUES: Visualized nasopharynx is normal. Superficial soft tissues are normal. IMPRESSION: No acute intracranial findings. Highly suggestive meningioma in the left frontal lobe superiorly anteriorly. Further evaluation advis ed. 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 Reviewed, dictated and finalized at location A. IMPRESSION: No acute intracranial findings. Highly suggestive meningioma in the left frontal lobe superiorly anteriorly. Fu rther evaluation advised. 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
[2024-03-17 13:12] LABS: Hematocrit 26.2 % (42.0-52.0); Hemoglobin 8.6 g/dL (14.0-18.0); Mean Corpuscular HGB Conc 32.8 g/dl (32-36); Mean Corpuscular Hemoglobin 27.6 pg (26-34); Mean Platelet Volume 9.3 fl (7.4-10.4); Platelet Count Result 194 k/mm3 (150-375); Red Blood Count 3.12 M/mm3 (4.6-6.20); Red Cell Distribution Width 14.5 % (11.5-14.5); White Blood Count 3.9 K/mm3 (4.5-10.0)
[2024-03-17 13:45] LABS: Alanine Aminotransferase 15 U/L (6-50); Albumin Level 4.5 g/dL (3.5-5.1); Alkaline Phosphatase 62 U/L (38-126); Anion Gap 7 mmol/L (4-12); Aspartate Amino Transferase 22 U/L (17-59); Bilirubin,Total 0.6 mg/dL (0.2-1.3); Blood Urea Nitrogen 39 mg/dL (9-20); CRP 0.6 mg/dL (<1.0); Calcium 9.4 mg/dL (8.4-10.2); Carbon Dioxide 23 mmol/L (22-30); Chloride 111 mmol/L (98-107); Cholesterol 232 mg/dL (0-200); Estimated Glomerular Filt Rate 33; Glucose 85 mg/dL (65-110); HDL Direct 62 mg/dL; Potassium 5.1 mmol/L (3.4-5.0); Sodium 141 mmol/L (137-145); Triglycerides 111 mg/dL (<150)
[2024-03-17 13:55] LABS: LDL Cholesterol Direct 116 mg/dL
[2024-03-17 14:01] LABS: Vitamin D 25 Hydroxy 23.8 ng/mL
[2024-03-17 14:15] LABS: Prostate Specific Antigen 10.1 ng/mL (< OR = 4.0)
[2024-03-17 16:10] LABS: Erythrocyte Sedimentation Rate 77 mm/hr (0-20)
== END 2024-03-17 12:12 | disposition home or self-care (01) ==
LOC: ANHIMG 12:12
PROVIDERS: PCP Family Medicine; Visit Provider Family Medicine
DX: R29.90 Unspecified symptoms and signs involving the nervous system (principal); R47.81 Slurred speech; R29.898 Other symptoms and signs involving the musculoskeletal system; C18.6 Malignant neoplasm of descending colon; I12.9 Hypertensive chronic kidney disease with stage 1 through stage 4 chronic kidney disease, or unspecified chronic kidney disease; D63.8 Anemia in other chronic diseases classified elsewhere; N18.31 Chronic kidney disease, stage 3a; I26.99 Other pulmonary embolism without acute cor pulmonale; E34.9 Endocrine disorder, unspecified; R97.20 Elevated prostate specific antigen [PSA]; E66.9 Obesity, unspecified; E78.2 Mixed hyperlipidemia; M10.9 Gout, unspecified; N40.0 Benign prostatic hyperplasia without lower urinary tract symptoms; E55.9 Vitamin D deficiency, unspecified; Z12.5 Encounter for screening for malignant neoplasm of prostate
CPT/HCPCS: 36415; 70450; 80053; 80061; 82306; 84153; 84311; 84443; 85027; 85652; 86140; G0103

== ENCOUNTER 2024-06-05 10:30 | Outpatient (CLI) | payer OTHER, SELFPAY ==
--- NOTE | ~2024-06-05 | US_ITS ---
US renal BI 06/05/2024 11:09 Procedure: Realtime transabdominal ultrasound of the kidneys and bladder. Indication: Chronic kidney disease Comparison: CT dated 11/16/2021 Findings: Renal echotexture is normal bilaterally without hydronephrosis, contour deforming mass or r enal calculus. There is a right renal cyst measuring 3.4 cm. Left kidney is atrophic. The right kidne y measures 9.5 cm and left kidney measures 7.7 cm. Bladder within normal limits. Impression: 1: Atrophic left kidney. 2: Right renal cyst measuring 3.4 cm. Reviewed, dictated and finalized at location B. Impression: 1: Atrophic left kidney. 2: Right renal cyst measuring 3.4 cm.
== END 2024-06-05 10:31 | disposition home or self-care (01) ==
PROVIDERS: PCP Family Medicine; Visit Provider Internal Medicine Nephrology
DX: N18.32 Chronic kidney disease, stage 3b (principal); N26.1 Atrophy of kidney (terminal); N28.1 Cyst of kidney, acquired
CPT/HCPCS: 76775

== ENCOUNTER 2024-07-30 10:02 | Outpatient (CLI) | payer OTHER, SELFPAY ==
[2024-07-30 10:50] LABS: Hematocrit 26.6 % (42.0-52.0); Hemoglobin 8.4 g/dL (14.0-18.0); Mean Corpuscular HGB Conc 31.6 g/dl (32-36); Mean Corpuscular Hemoglobin 27.6 pg (26-34); Mean Corpuscular Volume 87.5 fl (80-100); Mean Platelet Volume 9.7 fl (7.4-10.4); Platelet Count Result 235 k/mm3 (150-375); Red Blood Count 3.04 M/mm3 (4.6-6.20); Red Cell Distribution Width 15.6 % (11.5-14.5); White Blood Count 5.4 K/mm3 (4.5-10.0)
[2024-07-30 10:53] LABS: Creatinine Urine 185.7 mg/dL; Total Protein Urine Random 186 mg/dL
[2024-07-30 11:08] LABS: Alanine Aminotransferase 14 U/L (6-50); Albumin Level 4.6 g/dL (3.5-5.1); Alkaline Phosphatase 53 U/L (38-126); Anion Gap 10 mmol/L (4-12); Aspartate Amino Transferase 18 U/L (17-59); Bilirubin,Total 0.6 mg/dL (0.2-1.3); Blood Urea Nitrogen 29 mg/dL (9-20); Calcium 9.7 mg/dL (8.4-10.2); Carbon Dioxide 26 mmol/L (22-30); Chloride 109 mmol/L (98-107); Complement C3 109 mg/dL (88-165); Estimated Glomerular Filt Rate 39; Glucose 83 mg/dL (65-110); Potassium 4.3 mmol/L (3.4-5.0); Sodium 145 mmol/L (137-145)
[2024-07-30 11:17] LABS: Phosphorus 3.2 mg/dL (2.5-4.5)
[2024-07-30 11:18] LABS: Iron 68 ug/dL (49-181)
[2024-07-30 11:28] LABS: Percent Iron Saturation 27 % (20-50)
[2024-07-30 11:33] LABS: Prostate Specific Antigen 10.9 ng/mL (< OR = 4.0)
[2024-07-31 09:28] LABS: Creatinine, Random Urine 176 mg/dL (20-320); Total Prot/Creat ratio mg/mg 0.892 (0.025-0.148); Total Protein/Creatinine Ratio 892 mg/g creat (25-148)
[2024-08-01 03:50] LABS: Protein, Total 7.3 g/dL (6.1-8.1)
[2024-08-04 10:44] LABS: Anti Glomerular Basement Memb <1.0 AI
[2024-08-05 12:39] LABS: ANCA Screen NEGATIVE (NEGATIVE)
[2024-08-06 15:04] LABS: Abnormal Protein Band 1 6 mg/dL (NONE DETECTED)
[2024-08-07 16:49] LABS: Abnormal Protein Band 1 0.6 g/dL (NONE DETECTED); Albumin 4.3 g/dL (3.8-4.8); Alpha 1 Globulin 0.4 g/dL (0.2-0.3); Alpha 2 Globulin 0.8 g/dL (0.5-0.9); Beta 1 Globulin 0.4 g/dL (0.4-0.6); Gamma Globulin 1.1 g/dL (0.8-1.7)
== END 2024-07-30 10:03 | disposition home or self-care (01) ==
PROVIDERS: PCP Family Medicine; Referring Provider Family Medicine; Visit Provider Internal Medicine Nephrology
DX: I12.9 Hypertensive chronic kidney disease with stage 1 through stage 4 chronic kidney disease, or unspecified chronic kidney disease (principal); N18.32 Chronic kidney disease, stage 3b; D63.1 Anemia in chronic kidney disease; N40.0 Benign prostatic hyperplasia without lower urinary tract symptoms; D32.9 Benign neoplasm of meninges, unspecified; R29.90 Unspecified symptoms and signs involving the nervous system; R41.3 Other amnesia; E55.9 Vitamin D deficiency, unspecified; Z12.5 Encounter for screening for malignant neoplasm of prostate
CPT/HCPCS: 36415; 80053; 82570; 83520; 83540; 83550; 84100; 84153; 84155; 84156; 84165; 84166; 85027; 86036; 86038; 86039; 86160; 86225; G0103

== ENCOUNTER 2024-11-17 13:02 | Outpatient (CLI) | payer OTHER, SELFPAY ==
[2024-11-17 13:59] LABS: Albumin Level 4.1 g/dL (3.5-5.1); Anion Gap 11 mmol/L (4-12); Blood Urea Nitrogen 38 mg/dL (9-20); Calcium 9.6 mg/dL (8.4-10.2); Carbon Dioxide 25 mmol/L (22-30); Chloride 110 mmol/L (98-107); Estimated Glomerular Filt Rate 41; Glucose 90 mg/dL (65-110); Phosphorus 3.7 mg/dL (2.5-4.5); Potassium 4.7 mmol/L (3.4-5.0); Sodium 146 mmol/L (137-145)
[2024-11-17 14:09] LABS: Parathyroid Intact 93.4 pg/mL (14.5-75.2)
[2024-11-17 14:32] LABS: Vitamin D 25 Hydroxy 55.9 ng/mL
[2024-11-17 15:06] LABS: Creatinine Urine 214.9 mg/dL
[2024-11-17 15:13] LABS: Total Protein Urine Random 413 mg/dL; Ur Ttl Prot Creatinine Ratio 1.92 mg/mg (0-0.20)
== END 2024-11-17 13:03 | disposition home or self-care (01) ==
PROVIDERS: PCP Family Medicine; Visit Provider Internal Medicine Nephrology
DX: I12.9 Hypertensive chronic kidney disease with stage 1 through stage 4 chronic kidney disease, or unspecified chronic kidney disease (principal); N18.32 Chronic kidney disease, stage 3b; N25.81 Secondary hyperparathyroidism of renal origin; E55.9 Vitamin D deficiency, unspecified; R77.8 Other specified abnormalities of plasma proteins
CPT/HCPCS: 36415; 80069; 82306; 82570; 83970; 84156; 86334; 86335

== ENCOUNTER 2025-02-25 12:17 | Outpatient (CLI) | payer OTHER, SELFPAY ==
--- NOTE | ~2025-02-25 | MR_ITS ---
EXAMINATION: MR brain/brain stem wo/w con DATE: 02/25/2025 15:02 INDICATION: Multiple sclerosis TECHNIQUE: Magnetic resonance imaging (MRI) of the brain and brainstem was performed without intraven ous contrast. Sequences included sagittal and axial T1-weighted FLAIR, axial T1-weighted FSE, axial d iffusion-weighted FS EPI, sagittal T2-weighted FLAIR, axial T2*-weighted GRE, axial T2-weighted FLAIR Propeller, and axial T2-weighted Propeller. Apparent diffusion coefficient (ADC) maps were created. COMPARISON: Head CT dated 03/17/2024 FINDINGS: There are no areas of restricted diffusion to suggest acute infarction. There are regions of encephal omalacia with serpiginous pattern of T1 hyperintense laminar necrosis, small in the left frontal lobe and moderate-sized in the left parietal lobe consistent with sequela of old infarcts. There is a amari ticular extra-axial dural based lesion overlying the posterior left frontal lobe which is subtly T1 h ypointense and mildly T2 hyperintense to the adjacent cortex. The lesion measures 4.8 x 4.7 x 1.7 cm and in the absence of intravenous contrast. Is unclear whether this is fluid containing such as seque la of an epidural or subdural hematoma or solid structures in the setting of a meningioma. The lack o f significant interval change since prior CT strongly favors meningioma. In addition to the increased T2 signal in the regions of chronic infarct there is moderate additional scattered regions of nonspe cific increased T2-weighted signal intensity in the cerebral white matter, predominantly involving th e deep and periventricular white matter and likely sequela of chronic small vessel ischemic disease. There are no intraparenchymal signal abnormalities seen on the other pulse sequences. The ventricles are symmetric and normal in size. Flow voids are seen in the cerebral arteries on the T2-weighted seq uences consistent with their expected patency. The left vertebral artery is dominant. Visualized orbi ts and soft tissues are unremarkable. IMPRESSION: 1. Old infarcts, small mid left frontal lobe and moderate sized and the left parietal lobe. 2. No significant change since CT from 03/17/2024 in a 4.8 x 4.7 x 1.7 cm extra-axial lesion overlying the left frontal lobe with appearance and interval stability most consistent with a meningioma. 3. Moderate scattered nonspecific periventricular predominant white matter T2 hyperintensity which co uld be due to a reported history of multiple sclerosis but is also well within normal limits for typi libby age-related chronic small vessel ischemic disease. Reviewed, dictated and finalized at location A. IMPRESSION: 1. Old infarcts, small mid left frontal lobe and moderate sized and the left pa rietal lobe. 2. No significant change since CT from 03/17/2024 in a 4.8 x 4.7 x 1.7 cm extra- axial lesion overlying the left frontal lobe with appearance and interval stabi lity most consistent with a meningioma. 3. Moderate scattered nonspecific periventricular predominant white matter T2 h yperintensity which could be due to a reported history of multiple sclerosis bu t is also well within normal limits for typical age-related chronic small vesse l ischemic disease.
--- OUTSIDE RECORDS SUMMARY | 2025-02-25 12:05 | XMS_ITS ---
Author Name Auto Generated, Auto Generated Organization [facility] ices Address [address] [place] [address] Phone [phone] Care Team Providers Care Instructional Design Technologist Name Role Phone Anand Roblero Unavailable Emiliano Pratt Unavailable [phone] Functional Status No Results Mental Status No Results Allergies and Intolerances Name Onset Date Reaction Severity No Known Allergies (Allergy) SunNov 09 17:28:00 EST 2021 Medications Medication Directions Start Date End Date potassium chloride ER 20 mEq tablet,extended release(part/cryst) 1 tab TABLET, EXT RELEASE, PARTICLES/CRYSTALS Oral 1 Time Daily SunNov 27 09:00:00 EST 2021Nov 28 01:00:00 EST 2021 potassium chloride 20 mEq oral packet 1 packet PACKET (EA) Oral 1 Time Daily SunNov 23 09:00:00 EST 2021 Sat b 17:37:00 EST 2021 sodium bicarbonate 650 mg tablet 1 tablet TABLET Oral 2 Times Daily Sat Feb 21:00:00 EST 2021b 01:00:00 EST 2021 allopurinoL 100 mg tablet 1 tablet TABLE T Oral 1 Time Daily Dx Gout Sat Feb 15:00:00 EST 2021b 01:00:00 EST 2021 Oyster Shell Calcium 500 mg calcium (1,250 mg) tablet 1 tablet TABLET Oral 1 Time Daily Sat Feb 15:00:00 EST 2021b 01:00:00 EST 2021 MetamuciL 3.4 gram/5.4 gram oral powder 1 packet POWDER (GRAM) Oral 1 Time Daily Sat Feb 15:00:00 EST 2022 Mon Feb 28 01:00:00 EST 2021 zinc 50 mg tablet 1 tablet TABLET Oral 1 Time Daily for 14 Days Sat Feb 19 15:00:00 EST 2021 Mon Feb 28 01:00:00 EST 2021 multivitamin tablet 1 tablet TABLET Oral 1 Time Daily Sat Feb 19 15:00:00 EST 2021 Mon Feb 28 01:00:00 EST 2021 Eliquis 2.5 mg tablet 1 tablet TABLET Or al 2 Times Daily for 14 Days Sat Feb 19 15:00:00 EST 2021 Mon Feb 28 01:00:00 EST 2021 Eucerin topical cream apply to affected area CREAM (GRAM) Topical 3 Times Daily Apply to BLE TID for dry skin. Sat Feb 19 15:00:00 EST 2021 Mon Feb 28 01:00:00 EST 2021 calcium carbonate 500 mg calcium (1,250 mg) tablet 1 tab TABLET Oral 1 Time Daily Sun Feb 16 11:23:00 EST 2021u Feb 17 15:47:00 EST 2021 Eliquis 2.5 mg tablet 1 tab TABLET Oral 2 Times Daily for 14 Days elevated d-dimer Sunb 16 15:00:00 EST 2021u Feb 17 15:47:00 EST 2021 0.9% Normal Saline IV 1000 mL Intravenou s 1 Time Daily for 1 Day Give 1 Liter NS at 125ml/hr, check BMP after IVF is complete Sunb 15 19:00:00 EST 2021 Wed Feb 16 18:59:00 EST 2021 0.9% Normal Saline IV 1000 mL Intravenou s 1 Time Daily Sun Feb 14 11:06:00 EST 2021 Mon Feb 14 15:31:00 EST 2021 0.9% Normal Saline IV 1000 mL Intravenou s 1 Time Daily for 1 Day Give 1 Liter NS at 120ml/hr, check BMP after IVF is complete Sunb 14 15:00:00 EST 2021 Feb 15 14:59:00 EST 2021 Vitamin C 500 mg tablet 2 tabs TABLET Or al 2 Times Daily for 14 Days Sat Feb 12 18:00:00 EST 2021 Sat Feb 12 18:22:00 EST 2021 zinc 50 mg tablet 220 mg TABLET Oral 1 Time Daily for 14 Days Sat Feb 12 17:00:00 EST 2021u Feb 17 15:47:00 EST 2021 Vitamin C 500 mg tablet 2 tabs TABLET Or al 1 Time Daily for 14 Days Sat Feb 12 17:00:00 EST 2021 Feb 17 15:47:00 EST 2021 TUBErsoL 5 tub. unit/0.1 mL intradermal injection solution 0.1 ml VIAL (ML) Intradermal 1 Time Weekly for 2 Weeks Sat Feb 12 18:00:00 EST 2021 Feb 17 15:47:00 EST 2021 TUBErsoL 5 tub. unit/0.1 mL intradermal injection solution Read Results VIAL (ML) Other 1 Time Weekly for 2 Weeks Sat Feb 12 18:00:00 EST 2021u Feb 17 15:47:00 EST 2021 ergocalciferol (vitamin D2) 1,250 mcg (50,000 unit) capsule 1 tab CAPSULE Oral 2 Times Weekly Sunb 14 09:00:00 EST 2021 Feb 17 15:47:00 EST 2021 multivitamin tablet 1 tab TABLET Oral 1 Time Daily Sat b 09:00:00 EST 2021 Feb 17 15:47:00 EST 2021 MetamuciL 3.4 gram/5.4 gram oral powder as directed POWDER (GRAM) Oral 1 Time Daily Sat b 09:00:00 2021 Feb 17 15:47:00 EST 2021 allopurinoL 100 mg tablet 1 tablet TABLE T Oral 1 Time Daily SunNov 09 18:00:00 EST 2021 Feb 17 15:47:00 EST 2021 Eucerin topical cream as directed CREAM (GRAM) Topical 3 Times Daily Eucerin to BLE SunNov 09 18:30:00 EST 2021 Feb 17 15:47:00 EST 2021 Problems Active Concerns * Other intestinal obstruction unspecified as to partial versus complete obstruction* Code: * Start Date: SunNov 09 00:00:00 EST 2021 * End Date: * Text: * Acute kidney failure, unspecified* Code: * Start Date: SunNov 09 00:00:00 2021 * End Date: * Text: * Malignant neoplasm of splenic flexure* Code: * Start Date: SunNov 09 00:00:00 EST 2021 * End Date: * Text: * Aftercare following surgery for neoplasm* Code: * Start Date: SunNov 09 00:00:00 2021 * End Date: * Text: * Encounter for attention to colostomy* Code: * Start Date: SunNov 09 00:00:00 2021 * End Date: * Text: * Moderate protein-calorie malnutrition* Code: * Start Date: SunNov 09 00:00:00 2021 * End Date: * Text: * Hypertensive chronic kidney disease with stage 1 through stage 4 chronic kidney disease, or unspecified chronic kidney disease* Code: * Start Date: SunNov 09 00:00:00 2021 * End Date: * Text: * Other constipation* Code: * Start Date: SunNov 09 00:00:00 EST 2021 * End Date: * Text: * Gout, unspecified* Code: * Start Date: SunNov 09 00:00:00 2021 * End Date: * Text: * Xerosis cutis* Code: * Start Date: SunNov 09 00:00:00 2021 * End Date: * Text: * Abnormal weight loss* Code: * Start Date: SunNov 09 00:00:00 2021 * End Date: * Text: * COVID-19* Code: * Start Date: SunNov 11 00:00:00 2021 * End Date: * Text: * Chronic kidney disease, stage 3b* Code: * Start Date: SunNov 09 00:00:00 2021 * End Date: * Text: * Vitamin D deficiency, unspecified* Code: * Start Date: SunNov 09 00:00:00 2021 * End Date: * Text: * Other pulmonary embolism without acute cor pulmonale* Code: * Start Date: SunNov 19 00:00:00 EST 2021 * End Date: * Text: * Personal history of colonic polyps* Code: * Start Date: SunNov 19 00:00:00 EST 2021 * End Date: * Text: * Mixed hyperlipidemia* Code: * Start Date: SunNov 19 00:00:00 2021 * End Date: * Text: * Nicotine dependence, cigarettes, uncomplicated* Code: * Start Date: SunNov 19 00:00:00 EST 2021 * End Date: * Text: * Anemia, unspecified* Code: * Start Date: SunNov 19 00:00:00 EST 2021 * End Date: * Text: * Benign prostatic hyperplasia without lower urinary tract symptoms* Code: * Start Date: SunNov 19 00:00:00 EST 2021 * End Date: * Text: * USP (current) use of anticoagulants* Code: * Start Date: SunNov 19 00:00:00 2021 * End Date: * Text: Reason for Referral Past Medical History Resolved Concerns * Problem Essential (primary) hypertension* Code: * Start Date: SunNov 09 00:00:00 EST 2021 * End Date: SunNov 22 00:00:00 EST 2021 * Problem Chronic kidney disease, stage 3 unspecified* Code: * Start Date: SunNov 09 00:00:00 EST 2021 * End Date: SunNov 15 00:00:00 EST 2021
--- OUTSIDE RECORDS SUMMARY | 2025-02-25 12:05 | XMS_ITS ---
Author Name Auto Generated, Auto Generated Organization [facility] ices Address [address] [place] [address] Phone [phone] Care Team Providers Care Registered Nurse Practitioner Name Role Phone Anand Roblero Unavailable Emiliano Pratt Unavailable Functional Status No Results Mental Status No [...] 2021 * End Date: * Text: * shelter (current) use of anticoagulants* Code: * Start [...]
--- OUTSIDE RECORDS SUMMARY | 2025-02-25 12:31 | XMS_ITS ---
Author Name Auto Generated, Auto Generated Organization [facility] ices Address [address] [place] [address] Phone [phone] Care Team Providers Care Chemical Strength Tester Name Role Phone Anand Roblero Unavailable Emiliano [...] 2021 * End Date: * Text: * custodial (current) use of anticoagulants* Code: * Start [...]
--- OUTSIDE RECORDS SUMMARY | 2025-02-25 12:31 | XMS_ITS ---
Author Name Auto Generated, Auto Generated Organization [facility] ices Address [address] [place] [address] Phone [phone] Care Team Providers Care Manager Information Name Role Phone Anand Roblero Unavailable Emiliano [...] 2021 * End Date: * Text: * long-term (current) use of anticoagulants* Code: * Start [...]
[2025-02-25 18:53] LABS: Folic Acid 7.4 ng/mL (2.76->20)
[2025-03-01 03:52] LABS: Methylmalonic Acid. 462 nmol/L (85-423)
== END 2025-02-25 12:18 | disposition home or self-care (01) ==
LOC: ANHIMG 12:29
PROVIDERS: PCP Family Medicine; Visit Provider Psychiatry & Neurology Neurology
DX: R41.3 Other amnesia (principal); G35 Multiple sclerosis
CPT/HCPCS: 36415; 70553; 82607; 82746; 83921

== ENCOUNTER 2025-04-02 13:02 | Outpatient (CLI) | payer OTHER, SELFPAY ==
--- OUTSIDE RECORDS SUMMARY | 2025-04-02 13:07 | XMS_ITS ---
Author Name Auto Generated, Auto Generated Organization [facility] ices Address [address] [place] [address] Phone [phone] Care Team Providers Care Metalsmith Apprentice Name Role Phone Anand Roblero Unavailable Emiliano Pratt Unavailable [phone] Functional Status No Results Mental Status No [...] tablet TABLET Oral 2 Times Daily Sat b 21:00:00 EST 2021b 01:00:00 EST 2021 allopurinoL [...] 2021 * End Date: * Text: * retirement (current) use of anticoagulants* Code: * Start [...]
--- OUTSIDE RECORDS SUMMARY | 2025-04-02 13:07 | XMS_ITS ---
Author Name Auto Generated, Auto Generated Organization [facility] ices Address [address] [place] [address] Phone [phone] Care Team Providers Care Customer Consultant Name Role Phone Anand Roblero Unavailable [phone] Emiliano Pratt Unavailable Functional Status No Results [...] 2021 * End Date: * Text: * half-way (current) use of anticoagulants* Code: * Start [...]
[2025-04-02 13:39] LABS: Albumin Level 3.8 g/dL (3.5-5.1); Anion Gap 9 mmol/L (4-12); Blood Urea Nitrogen 44 mg/dL (9-20); Calcium 9.0 mg/dL (8.4-10.2); Carbon Dioxide 19 mmol/L (22-30); Chloride 116 mmol/L (98-107); Estimated Glomerular Filt Rate 26; Glucose 88 mg/dL (65-110); Potassium 5.0 mmol/L (3.4-5.0); Sodium 144 mmol/L (137-145)
[2025-04-02 13:52] LABS: Total Protein Urine Random 73 mg/dL; Ur Ttl Prot Creatinine Ratio 0.44 mg/mg (0-0.20)
== END 2025-04-02 13:03 | disposition home or self-care (01) ==
LOC: ANHLAB 13:03
PROVIDERS: PCP Family Medicine; Visit Provider Internal Medicine Nephrology
DX: I12.9 Hypertensive chronic kidney disease with stage 1 through stage 4 chronic kidney disease, or unspecified chronic kidney disease (principal); N18.32 Chronic kidney disease, stage 3b
CPT/HCPCS: 36415; 80069; 82570; 84156

== ENCOUNTER 2025-04-28 14:15 | Inpatient (IN) | payer OTHER, SELFPAY ==
[2025-04-28] VITALS (29 sets, daily range): BP systolic 122–196; BP diastolic 38–78; PULSE 36–65; RESP 12–19; TEMP 35.9–36.4; O2SAT 92–100; BMI 16.4
--- NOTE | 2025-04-28 14:26 | ECG_ITS ---
Test Date: 2025-04-28 14:23:08 Measurements Intervals [place] Rate: 41 P: 77 SD: 196 QRS: 74 QRSD: 98 T: 75 QT: 464 QTc: 387 Interpretive Statements SINUS BRADYCARDIA No previous ECG available for comparison Electronically Signed On 04-28-2025 17:32:43 CDT by Jc Chavez D.O
[2025-04-28] MEDS: DEXTROSE 10% 500 ML 999 ML IV CONT (14:35)
--- OUTSIDE RECORDS SUMMARY | 2025-04-28 14:44 | XMS_ITS ---
Author Name Auto Generated, Auto Generated Organization [facility] ices Address [address] [place] [address] Phone [phone] Care Team Providers Care Manager Contact Name Role Phone Anand Roblero Unavailable Emiliano Pratt Unavailable [phone] Functional Status No Results Mental Status [...] 2021 * End Date: * Text: * senior living (current) use of anticoagulants* Code: * Start Date: SunNov 19 00:00:00 2021 * End Date: * Text: Reason for Referral Past Medical History
--- OUTSIDE RECORDS SUMMARY | 2025-04-28 14:44 | XMS_ITS ---
Author Name Auto Generated, Auto Generated Organization [facility] ices Address [address] [place] [address] Phone [phone] Care Team Providers Care Tromper Name Role Phone Anand Roblero Unavailable Emiliano Pratt Unavailable [phone] Functional Status No Results Mental Status No [...] 2021 * End Date: * Text: * nursing home (current) use of anticoagulants* Code: * Start Date: SunNov 19 00:00:00 2021 * End Date: * Text: Reason for Referral Past Medical History
[2025-04-28 14:49] LABS: Hematocrit 22.2 % (42.0-52.0); Immature Granulocyte Percent A 0.2 % (0-0.5); Lymphocytes Absolute Auto 0.98 K/mm3 (0.9-3.2); Mean Corpuscular HGB Conc 31.1 g/dl (32-36); Mean Corpuscular Hemoglobin 26.7 pg (26-34); Mean Corpuscular Volume 86.0 fl (80-100); Nucleated Red Blood Cells Absolute Auto 0.000 K/mm3 (0.0-0.012); Nucleated Red Blood Cells Perc 0.0 % (0.0-0.2); Platelet Count Result 251 k/mm3 (150-375); Red Blood Count 2.58 M/mm3 (4.6-6.20); White Blood Count 5.2 K/mm3 (4.5-10.0)
[2025-04-28 14:50] LABS: Hemoglobin 6.9 g/dL (14.0-18.0)
[2025-04-28] MEDS: DEXTROSE 50% 25 GM/50 ML SYRINGE IV PUSH ×2 (14:50→15:27)
--- NOTE | 2025-04-28 14:56 | PC.NURSE ---
pt was bladder scanned at this time and found no urine to collect for specimen
[2025-04-28 15:07] LABS: Alanine Aminotransferase 15 U/L (6-50); Albumin Level 3.9 g/dL (3.5-5.1); Alkaline Phosphatase 73 U/L (38-126); Anion Gap 11 mmol/L (4-12); Aspartate Amino Transferase 19 U/L (17-59); Bilirubin,Total 0.4 mg/dL (0.2-1.3); Blood Urea Nitrogen 78 mg/dL (9-20); Calcium 9.6 mg/dL (8.4-10.2); Carbon Dioxide 12 mmol/L (22-30); Chloride 113 mmol/L (98-107); Estimated CRCL calculation 9 ml/min; Estimated Glomerular Filt Rate 15; Glucose 100 mg/dL (65-110); Potassium 6.5 mmol/L (3.4-5.0); Sodium 136 mmol/L (137-145); Total Protein 7.3 g/dL (6.3-8.2)
[2025-04-28 15:09] LABS: INR 1.2; Prothrombin Time 14.9 Seconds (11.1-14.7)
[2025-04-28 15:10] LABS: Partial Thromboplastin Time 29.8 Seconds (22.3-36.8)
[2025-04-28] MEDS: CALCIUM GLUCONATE 1,000 MG/10 ML VIAL 1000 MG IV PUSH (15:27)
[2025-04-28] MEDS: INSULIN HUMAN REGULAR (*BKC) 100 UNITS/ML 10 UNITS IV PUSH (15:27)
--- NOTE | 2025-04-28 16:08 | PC.NURSE ---
pt came into ED with a 2 piece colostomy bag that was leaking. this RN changed the bag
--- NOTE | 2025-04-28 16:59 | ED.GENADULT ---
HPI - General Adult General Chief complaint: Altered Mental Status Stated complaint: ams Time Seen by Provider: 04/28/25 14:22 Source: family and EMS Mode of arrival: EMS Limitations: clinical condition History of Present Illness HPI narrative: 80-year-old with a history of CVA, anemia, CKD, hypertension was brought in from home with the complaints of not eating or drinking for past few days. Patient's who is at bedside states that he is not eating food for last 2 days and he refuses to eat. He does not want any interventions done. He denies any headache, chest pain or shortness of breath or abdominal pain. No history of nausea or vomiting. Onset (ago): week(s) Related Data Home Medications ?Medication ?Instructions ?Recorded ?Confirmed ?Last Taken ?Type cholecalciferol (vitamin D3) 125 125 mcg PO DAILY 05/22/24 04/07/25 Unknown History mcg (5,000 unit) tablet ferrous sulfate 325 mg (65 mg 325 mg PO DAILY 05/22/24 04/07/25 Unknown History iron) tablet (iron) Allergies Allergy/AdvReac Type Severity Reaction Status Date / Time No Known Allergies Allergy Mild Verified 04/28/25 15:27 Review of Systems Review of Systems: ROS unobtainable: Yes unobtainable due to mental status PMFSH Past Medical History Medical History Left-sided cerebrovascular accident (CVA) Dementia Pulmonary embolism Elevated parathyroid hormone Elevated PSA Obesity Anemia BPH w/o urinary obs/LUTS Chronic kidney disease, stage 3 Essential (primary) hypertension Gout, unspecified Mixed hyperlipidemia Tobacco use disorder Family History Family History Sibling Patient's sister is in good health Patient's brother is in good health Father Family history of malignant neoplasm Patient's father is Mother Family history of malignant neoplasm Patient's mother is Social History Social History Smoking packs per day: 0.25 Smoking cigarettes per day: 5.0 Years smoked: 35 Smoking pack-years: 8.75 Smoking status: Current every day smoker Tobacco type: cigarettes Second hand tobacco smoke exposure: No Alcohol intake: current Substance use: unknown Substance use type: does not use Do You Feel Safe in your Home?: Yes Lack of Transportation: No Lack of Food: Sometimes True Current Housing: I Have Housing Concerned About Future Housing: No Difficulty Paying Gas/Electric Bills: No Difficulty Paying for Meds: No Currently Unemployed: No Education: High School Diploma/GED Difficulty w/ Childcare or Family Care: No Occupation/Education: retired Gender identity (if verbalized by the patient): Male Spiritual care concerns: No Exam Narrative: GENERAL: Well-appearing, well-nourished, and in no acute distress. HEAD: Normocephalic, atraumatic. EYES: PERRLA and EOMI. ENT: Nares clear, no rhinorrhea or epistaxis. Mucous membranes moist. NECK: Supple. CHEST: Clear to auscultation. No respiratory distress. HEART: Regular rate and rhythm. No murmur heard. Normal peripheral pulses. ABDOMEN: Soft, nontender, nondistended, normal active bowel sounds. EXTREMITIES: Normal range of motion. No edema. SKIN: Warm, dry, no rash. NEURO: No focal deficits. Alert and oriented x3. PSYCH: Normal mood and affect. Course Course Emergency Course: Notified patient and his who is at bedside declined hospice care. At the same note he does not want a blood transfusion done. Will admit to the hospital, I am not sure what the patient or his wants. Vital Signs Vital signs: Vital Signs Temperature 36.4 C 04/28/25 14:15 Pulse Rate 43 L 04/28/25 14:15 Respiratory Rate 15 04/28/25 14:15 Blood Pressure 153/38 H 04/28/25 14:15 Temperature 36.4 C 04/28/25 14:15 Pulse Rate 55 L 04/28/25 16:01 Respiratory Rate 19 04/28/25 16:01 Blood Pressure 148/64 H 04/28/25 16:01 Pulse Oximetry 97 04/28/25 16:01 Oxygen Delivery Room Air 04/28/25 14:54 Medical Decision Making Differential Diagnosis Differential Diagnosis: Failure to thrive, dehydration Medical Records Medical records reviewed: Yes I reviewed the external patient's medical records. Vital Signs Vital Signs: Vital Signs Temperature 36.4 C 04/28/25 14:15 Pulse Rate 43 L 04/28/25 14:15 Respiratory Rate 15 04/28/25 14:15 Blood Pressure 153/38 H 04/28/25 14:15 Temperature 36.4 C 04/28/25 14:15 Pulse Rate 55 L 04/28/25 16:01 Respiratory Rate 19 04/28/25 16:01 Blood Pressure 148/64 H 04/28/25 16:01 Pulse Oximetry 97 04/28/25 16:01 Oxygen Delivery Room Air 04/28/25 14:54 Lab Data 04/28/25 14:40 04/28/25 14:40 Labs: Lab Results 04/28/25 04/28/25 04/28/25 Range/Units 14:22 14:40 14:45 WBC 5.2 (4.5-10.0) K/mm3 RBC 2.58 L (4.6-6.20) M/mm3 Hgb 6.9 L* (14.0-18.0) g/dL Hct 22.2 L (42.0-52.0) % MCV 86.0 (80-100) fl MCH 26.7 (26-34) pg MCHC 31.1 L (32-36) g/dl RDW 15.5 H (11.5-14.5) % Plt Count 251 (150-375) k/mm3 MPV 9.2 (7.4-10.4) fl Immature Gran % (Auto) 0.2 (0-0.5) % Neut % (Auto) 74.8 H (45.5-73.1) % Lymph % (Auto) 19.0 (18.3-44.2) % [place] % (Auto) 5.8 (2.6-8.5) % Eos % (Auto) 0.0 (0-4.4) % Baso % (Auto) 0.2 (0.2-1.2) % Lymph # (Auto) 0.98 (0.9-3.2) K/mm3 [place] # (Auto) 0.3 (0.1-0.6) K/mm3 Eos # (Auto) 0.0 (0-0.3) K/mm3 Baso # (Auto) 0.0 (0.0-0.1) K/mm3 Abs Immat Gran (auto) 0.01 (0.00-0.031) K/mm3 Absolute Neuts (auto) 3.9 (1.3-6.7) K/mm3 Absolute Nucleated RBC 0.000 (0.0-0.012) K/mm3 Nucleated RBC % 0.0 (0.0-0.2) % PT 14.9 H (11.1-14.7) Seconds INR 1.2 APTT 29.8 (22.3-36.8) Seconds Sodium 136 L (137-145) mmol/L Potassium 6.5 H* (3.4-5.0) mmol/L Chloride 113 H (98-107) mmol/L Carbon Dioxide 12 L (22-30) mmol/L Anion Gap 11 (4-12) mmol/L BUN 78 H D (9-20) mg/dL Creatinine 3.90 H (0.7-1.3) mg/dL Estim Creat Clear Calc 9 ml/min Estimated GFR 15 L (59 - ) Glucose 100 (65-110) mg/dL POC Capillary Glucose 62 L 36 L* (65-105) mg/dl Lactic Acid (0.7-2.0) mmol/L Calcium 9.6 (8.4-10.2) mg/dL Total Bilirubin 0.4 (0.2-1.3) mg/dL AST 19 (17-59) U/L ALT 15 (6-50) U/L Alkaline Phosphatase 73 (38-126) U/L Total Protein 7.3 (6.3-8.2) g/dL Albumin 3.9 (3.5-5.1) g/dL 04/28/25 04/28/25 04/28/25 Range/Units 15:09 15:23 15:31 WBC (4.5-10.0) K/mm3 RBC (4.6-6.20) M/mm3 Hgb (14.0-18.0) g/dL Hct (42.0-52.0) % MCV (80-100) fl MCH (26-34) pg MCHC (32-36) g/dl RDW (11.5-14.5) % Plt Count (150-375) k/mm3 MPV (7.4-10.4) fl Immature Gran % (Auto) (0-0.5) % Neut % (Auto) (45.5-73.1) % Lymph % (Auto) (18.3-44.2) % [place] % (Auto) (2.6-8.5) % Eos % (Auto) (0-4.4) % Baso % (Auto) (0.2-1.2) % Lymph # (Auto) (0.9-3.2) K/mm3 [place] # (Auto) (0.1-0.6) K/mm3 Eos # (Auto) (0-0.3) K/mm3 Baso # (Auto) (0.0-0.1) K/mm3 Abs Immat Gran (auto) (0.00-0.031) K/mm3 Absolute Neuts (auto) (1.3-6.7) K/mm3 Absolute Nucleated RBC (0.0-0.012) K/mm3 Nucleated RBC % (0.0-0.2) % PT (11.1-14.7) Seconds INR APTT (22.3-36.8) Seconds Sodium (137-145) mmol/L Potassium (3.4-5.0) mmol/L Chloride (98-107) mmol/L Carbon Dioxide (22-30) mmol/L Anion Gap (4-12) mmol/L BUN (9-20) mg/dL Creatinine (0.7-1.3) mg/dL Estim Creat Clear Calc ml/min Estimated GFR (59 - ) Glucose (65-110) mg/dL POC Capillary Glucose 76 102 (65-105) mg/dl Lactic Acid 1.2 (0.7-2.0) mmol/L Calcium (8.4-10.2) mg/dL Total Bilirubin (0.2-1.3) mg/dL AST (17-59) U/L ALT (6-50) U/L Alkaline Phosphatase (38-126) U/L Total Protein (6.3-8.2) g/dL Albumin (3.5-5.1) g/dL 04/28/25 Range/Units 16:55 WBC (4.5-10.0) K/mm3 RBC (4.6-6.20) M/mm3 Hgb (14.0-18.0) g/dL Hct (42.0-52.0) % MCV (80-100) fl MCH (26-34) pg MCHC (32-36) g/dl RDW (11.5-14.5) % Plt Count (150-375) k/mm3 MPV (7.4-10.4) fl Immature Gran % (Auto) (0-0.5) % Neut % (Auto) (45.5-73.1) % Lymph % (Auto) (18.3-44.2) % [place] % (Auto) (2.6-8.5) % Eos % (Auto) (0-4.4) % Baso % (Auto) (0.2-1.2) % Lymph # (Auto) (0.9-3.2) K/mm3 [place] # (Auto) (0.1-0.6) K/mm3 Eos # (Auto) (0-0.3) K/mm3 Baso # (Auto) (0.0-0.1) K/mm3 Abs Immat Gran (auto) (0.00-0.031) K/mm3 Absolute Neuts (auto) (1.3-6.7) K/mm3 Absolute Nucleated RBC (0.0-0.012) K/mm3 Nucleated RBC % (0.0-0.2) % PT (11.1-14.7) Seconds INR APTT (22.3-36.8) Seconds Sodium (137-145) mmol/L Potassium (3.4-5.0) mmol/L Chloride (98-107) mmol/L Carbon Dioxide (22-30) mmol/L Anion Gap (4-12) mmol/L BUN (9-20) mg/dL Creatinine (0.7-1.3) mg/dL Estim Creat Clear Calc ml/min Estimated GFR (59 - ) Glucose (65-110) mg/dL POC Capillary Glucose 319 H (65-105) mg/dl Lactic Acid (0.7-2.0) mmol/L Calcium (8.4-10.2) mg/dL Total Bilirubin (0.2-1.3) mg/dL AST (17-59) U/L ALT (6-50) U/L Alkaline Phosphatase (38-126) U/L Total Protein (6.3-8.2) g/dL Albumin (3.5-5.1) g/dL ECG Data EKG #1: ECG completion date: 04/28/25 ECG completion time: 14:23 EKG Interpretation: bradycardia (41), sinus rhythm, no ectopy, normal QRS and normal QT Discharge Plan Discharge Clinical Impression: Acute hyperkalemia, Adult failure to thrive Acute renal failure Qualifiers: Acute renal failure type: unspecified Qualified Code(s): N17.9 - Acute kidney failure, unspecified Anemia Qualifiers: Anemia type: unspecified type Qualified Code(s): D64.9 - Anemia, unspecified Patient Disposition: Still a Patient Condition: Guarded Prognosis Patient Language: [place] Prescriptions: No Action nifedipine 30 mg tablet extended release 30 mg PO DAILY Qty: 30 6RF Rx Instructions: Stop amlodipine when you start this medication ferrous sulfate [iron] 325 mg (65 mg iron) tablet 325 mg PO DAILY cholecalciferol (vitamin D3) 125 mcg (5,000 unit) tablet 125 mcg PO DAILY mirtazapine 15 mg tablet 15 mg PO DAILY Qty: 90 0RF memantine 10 mg tablet 10 mg PO BID Qty: 60 6RF Rx Instructions: to start after the titration pack donepezil 10 mg tablet 10 mg PO QHS Qty: 90 1RF lisinopril 10 mg tablet 10 mg PO DAILY Qty: 90 1RF metoprolol succinate 50 mg tablet extended release 24 hr See Rx Instructions .ROUTE .COMPLEX Qty: 90 0RF Dose Instruction: TAKE 1 TABLET BY MOUTH DAILY Rx Instructions: TAKE 1 TABLET BY MOUTH DAILY Follow-up/Referrals: Aníbal Boyce MD [Primary Care Provider] - Time of Disposition: 17:19
--- NOTE | 2025-04-28 17:04 | PC.NURSE ---
this RN and EDP Dr. Mahoney talked to the pt and POA about his decisions with his care. pt is A&OX3 but verbalized he would not like a blood transfusion and POA is going along with pt wishes and verbalized she doesn't want him getting a blood transfusion. POA is pt ex-, POA says the pt does not have any children. POMaryjane- Kasie Urban
[2025-04-28] MEDS: SODIUM CHLORIDE 0.9% IV 1,000 ML 125 ML IV CONT (17:47)
--- NOTE | 2025-04-28 17:47 | PC.NURSE ---
this RN did a bladder scan to obtain for a urine specimen and found 0mL in pt bladder.
--- NOTE | 2025-04-28 19:19 | PC.NURSE ---
ER Physician aware of patients blood pressure elevation. Patient refuses all interventions
--- NOTE | 2025-04-28 19:39 | PM.IMHP ---
H&P: HPI History of Present Illness Date/Time: 04/28/25 19:39 Chief Complaint: Failure to Thrive Narrative: 80 y/o M with PMH of CVA, dementia, pulmonary embolism, anemia, BPH, CKD, hypertension, hyperlipidemia and gout presents here with failure to thrive. The patient presents here from home for further evaluation of failure to thrive. HPI obtained through the patient's POA/ex , patient report, and chart review due to patient's current mentation. He is presenting here today after a general decline for the last 2 months. However has significantly worsened the last 2 days as evidenced by significantly poor p.o. intake/refusal to eat, reportedly has not ate or drink anything for the past 48 hours. The patient is unable to elaborate as to why he has not been eating. He denies any associated abdominal pain, nausea, vomiting, or diarrhea. Per EMS, upon their arrival the patient had a heart rate in the 40s and a blood sugar of 60, oral glucose given. Initial VS at presentation: 97.6? F, HR 43, R 15, 153/38, and 97% on RA. ED workup showed: No leukocytosis, hemoglobin 6.9, INR 1.2, potassium 6.5, sodium 136, creatinine 3.9 and GFR 15 (creatinine 2.4 and GFR 26 on 04/02/2025), glucose 100, lactic 1.2. EKG showed sinus bradycardia, rate 41. Review of Systems Review of Systems: All systems reviewed & are unremarkable except as noted in HPI and below (Limited due to patient mentation/participation in interview) [facility] Past Medical History Medical History Left-sided cerebrovascular accident (CVA) Dementia Pulmonary embolism Elevated parathyroid hormone Elevated PSA Obesity Anemia BPH w/o urinary obs/LUTS Chronic kidney disease, stage 3 Essential (primary) hypertension Gout, unspecified Mixed hyperlipidemia Tobacco use disorder Family History Family History Sibling Patient's sister is in good health Patient's brother is in good health Father Family history of malignant neoplasm Patient's father is Mother Family history of malignant neoplasm Patient's mother is Social History Social History Smoking packs per day: 0.25 Smoking cigarettes per day: 5.0 Years smoked: 35 Smoking pack-years: 8.75 Smoking status: Current every day smoker Second hand tobacco smoke exposure: No Alcohol intake: unknown Substance use: unknown Substance use type: does not use Do You Feel Safe in your Home?: Yes Lack of Transportation: No Lack of Food: Sometimes True Current Housing: I Have Housing Concerned About Future Housing: No Difficulty Paying Gas/Electric Bills: No Difficulty Paying for Meds: No Currently Unemployed: No Education: High School Diploma/GED Difficulty w/ Childcare or Family Care: No Occupation/Education: retired Gender identity (if verbalized by the patient): Male Spiritual care concerns: No Meds Home Medications and Allergies Home Medications ?Medication ?Instructions ?Recorded ?Confirmed ?Type cholecalciferol (vitamin D3) 125 125 mcg PO DAILY 05/22/24 04/07/25 History mcg (5,000 unit) tablet ferrous sulfate 325 mg (65 mg 325 mg PO DAILY 05/22/24 04/07/25 History iron) tablet (iron) lisinopril 10 mg tablet 10 mg PO DAILY #90 tabs 07/21/24 04/07/25 Rx metoprolol succinate 50 mg See Rx Instructions .Route 10/27/24 04/07/25 Rx tablet,extended release 24 hr .COMPLEX #90 tabs nifedipine 30 mg tablet,extended 30 mg PO DAILY #30 tabs 12/02/24 04/07/25 Rx release donepezil 10 mg tablet 10 mg PO QHS #90 tabs 02/12/25 04/07/25 Rx memantine 10 mg tablet 10 mg PO BID #60 tabs 02/12/25 04/07/25 Rx mirtazapine 15 mg tablet 15 mg PO DAILY #90 tabs 04/28/25 04/28/25 Rx Allergies Allergy/AdvReac Type Severity Reaction Status Date / Time No Known Allergies Allergy Mild Verified 04/28/25 15:27 Vital Signs Vital Signs - 24 hr 04/28/25 14:15 04/28/25 14:43 04/28/25 14:47 Temperature 97.6 F Pulse Rate 43 L 44 L 43 L Respiratory Rate 15 16 16 Blood Pressure 153/38 H 165/46 H 176/47 H Pulse Oximetry 97 96 Oxygen Delivery 04/28/25 14:54 04/28/25 14:56 04/28/25 15:01 Temperature Pulse Rate 44 L 51 L Respiratory Rate Blood Pressure 171/52 H Pulse Oximetry 94 92 Oxygen Delivery Room Air 04/28/25 15:16 04/28/25 15:31 04/28/25 15:32 Temperature Pulse Rate 53 L 54 L 52 L Respiratory Rate 19 12 17 Blood Pressure 179/59 H 171/78 H Pulse Oximetry 97 99 95 Oxygen Delivery 04/28/25 15:45 04/28/25 15:46 04/28/25 16:00 Temperature Pulse Rate 53 L 56 L Respiratory Rate 12 Blood Pressure 186/68 H Pulse Oximetry 95 95 96 Oxygen Delivery 04/28/25 16:01 04/28/25 16:16 04/28/25 16:30 Temperature Pulse Rate 55 L 53 L Respiratory Rate 19 19 Blood Pressure 148/64 H 171/73 H Pulse Oximetry 97 97 94 Oxygen Delivery 04/28/25 16:31 04/28/25 16:45 04/28/25 16:46 Temperature Pulse Rate 50 L 36 L 43 L Respiratory Rate 17 12 Blood Pressure 186/70 H 184/68 H Pulse Oximetry 97 96 94 Oxygen Delivery 04/28/25 17:01 04/28/25 17:16 04/28/25 17:32 Temperature Pulse Rate Respiratory Rate Blood Pressure 169/77 H 185/76 H 153/75 H Pulse Oximetry 100 95 100 Oxygen Delivery 04/28/25 17:45 04/28/25 17:47 04/28/25 17:48 Temperature Pulse Rate 45 L 49 L 49 L Respiratory Rate Blood Pressure 173/56 H Pulse Oximetry 100 95 96 Oxygen Delivery 04/28/25 18:00 04/28/25 18:01 04/28/25 19:21 Temperature Pulse Rate 45 L 46 L 40 L Respiratory Rate 14 Blood Pressure 196/73 H 171/71 H Pulse Oximetry 95 98 95 Oxygen Delivery Exam Const: General: comfortable and no acute distress Other: , male, frail, nontoxic appearance HENMT: Face/Nose/Sinus: Normal nares present Mouth: Yes dry mucous membranes Eyes: General: appearance normal, both eyes and all related structures Sclera: sclerae normal Pupils: Equal, round and reactive pupils present EOM: EOMs intact bilaterally Resp: Effort & Inspection: normal respiratory effort Auscultation: clear to auscultation bilaterally Cardio: Rate: regular rate Rhythm: regular rhythm Other: S1-S2 present without murmur, rub, ectopy GI: Other: Abdomen soft, nondistended, nontender. Normoactive bowel sounds in all quadrants. Skin: General skin exam: normal color and no rashes or lesions noted Wounds: no wounds Neuro: Speech: normal speech Motor exam (neuro): 5/5 motor strength present throughout Sensory Exam: normal sensation Other: A&O to self and place. Avoided additional questions and agitated. Extrem: General: normal to inspection Psych: Other: Poor insight and judgment, mild agitation noted and frequent avoidance of questions. H&P: Results Labs Labs: Short CBC 04/28/25 Range/Units 14:40 WBC 5.2 (4.5-10.0) K/mm3 Hgb 6.9 L* (14.0-18.0) g/dL Hct 22.2 L (42.0-52.0) % Plt Count 251 (150-375) k/mm3 BMP 04/28/25 14:40 Sodium 136 L Potassium 6.5 H* Chloride 113 H Carbon Dioxide 12 L BUN 78 H D Creatinine 3.90 H Glucose 100 Calcium 9.6 Liver Function 04/28/25 Range/Units 14:40 Total Bilirubin 0.4 (0.2-1.3) mg/dL AST 19 (17-59) U/L ALT 15 (6-50) U/L Alkaline Phosphatase 73 (38-126) U/L Albumin 3.9 (3.5-5.1) g/dL Assessment and Plan Assessment and plan (1) Failure to thrive: Qualifiers: Failure to thrive age range: in adult Qualified Code(s): R62.7 - Adult failure to thrive Status: Acute Assessment and Plan: The patient has had general decline over the last 2 months that has significantly worsened in the last 2 days. Patient has had little to no p.o. intake which prompted evaluation in the ED. per documentation in the ED, provider discussed hospice care with the patient's POA (his ex-) and the patient. Ex declined hospice care at this time. Reviewed chart -> per most recent note from his primary from visit yesterday on 04/27, the patient declined majority of treatments and interventions or referrals. Patient also noted to be anemic in the ED and declined blood transfusion. Staff have now reached out to the patient's POA and left a voicemail twice with no return call. Will need to clarify with the patient's POA tomorrow what care level they are seeking and if the patient is to remain full code. Attempted to ask the patient about his code status, but he became agitated stating he wanted to sleep and take a nap and avoided further questioning. Care coordination consulted for discharge planning. (2) Anemia of chronic disease: Code(s): D63.8 - Anemia in other chronic diseases classified elsewhere Status: Acute Assessment and Plan: Hemoglobin 6.9 upon admission. Patient declined blood transfusion in the ED. Anemia workup ordered. Will defer further plan until patient's POA is contacted and goals of care are discussed. Trend hemoglobin. (3) Hyperkalemia: Code(s): E87.5 - Hyperkalemia Status: Acute Assessment and Plan: K 6.5 upon admission. Given calcium, insulin/dextrose, soda bicarbonate and IV fluids in the ED. recheck this evening showed potassium corrected to 5.1. Will continue IV fluids. Recheck in a.m.. Monitor. (4) Stage 4 chronic kidney disease: Code(s): N18.4 - Chronic kidney disease, stage 4 (severe) Status: Chronic Assessment and Plan: Renal function or upon admission showed a creatinine of 3.48, BUN 75, GFR 17. Per most recent outpatient nephrology note on 04/07/2025, the patient's baseline creatinine runs between 1.7 and 2.3. Monitor. Nephrology consulted by ED provider, following. (5) Dementia: Qualifiers: Dementia type: unspecified type Code(s): F03.90 - Unspecified dementia, unspecified severity, without behavioral disturbance, psychotic disturbance, mood disturbance, and anxiety Status: Chronic Assessment and Plan: Currently alert and orientated to self and place only. Mild agitation noted on exam. Per external med rec, patient appears to be on memantine. Will continue once medication list is verified with patient's POA. Patient currently unable to confirm medications. (6) Essential (primary) hypertension: Code(s): I10 - Essential (primary) hypertension Status: Chronic Assessment and Plan: Initial BP upon presentation was 153/38. Currently 122/77. Reviewed outside med rec, appears to be on lisinopril 10 mg daily, nifedipine ER 30 mg daily and metoprolol ER 50 mg daily. Resume once verified an appropriate. Monitor BP. Plan Diet: Regular GI Prophylaxis: n/a DVT Prophylaxis: SCDs IV fluids: LR 100 mL/hour Lines/Tubes: Peripheral IV Code Status: Full code, will need verification with patient's POA as the patient avoids questions about code status Quality VTE Prophylaxis VTE prophylaxis: mechanical ordered Hospitalist [facility] Advance Care Plan I have confirmed that the patient's Advanced Care Plan is present, code status is documented, or surrogate decision maker is listed in patient medical record.: Yes Medication Reconciliation I have utilized all available resources to obtain, update and review the patients current medications (includes all prescriptions, OTC, herbals, cannabis, and nutritional supplements).: Yes
[2025-04-28 19:46] LABS: Add Urine Microscopic? YES; Appearance Urine Clear (Clear); Glucose Urine UA 3+ mg/dL (Negative); Leukocyte Esterase Ur Negative LEU/UL (Negative); Nitrate Urine Negative (Negative); Specific Grav Ur 1.016 (1.001-1.035)
--- NOTE | 2025-04-28 19:54 | ADMGEN ---
This patient, Tramaine Urban, was admitted to Medical Room 345-01. Patient/family oriented to hospital policies and general routines including ID bracelet, bed and alarms, visiting hours, pain management, procedures, bathroom and other care routines, personal items, smoking policy, room service/diet, and visiting hours. Information on how to activate the Rapid Response Team has been discussed. Patient/Family are encouraged to report perceived risks to care and to ask questions if they do not understand what they are told or what they should do.
--- NOTE | 2025-04-28 20:09 | PC.NURSE ---
Call placed to MARY Urban to discuss code status and patient's wishes. Call went straight to voicemail, message left requesting return call.
[2025-04-28 20:55] LABS: Anion Gap 14 mmol/L (4-12); Blood Urea Nitrogen 75 mg/dL (9-20); Calcium 9.4 mg/dL (8.4-10.2); Carbon Dioxide 8 mmol/L (22-30); Chloride 114 mmol/L (98-107); Estimated CRCL calculation 10 ml/min; Estimated Glomerular Filt Rate 17; Glucose 206 mg/dL (65-110); Magnesium 2.8 mg/dL (1.6-2.3); Potassium 5.1 mmol/L (3.4-5.0); Sodium 136 mmol/L (137-145)
[2025-04-28 22:09] LABS: Total Protein Urine Random 42 mg/dL; Ur Ttl Prot Creatinine Ratio 0.58 mg/mg (0-0.20)
[2025-04-28 22:17] LABS: Total Protein Urine Random 39 mg/dL; Urea Random Urine 464 MG/DL
[2025-04-28] MEDS: SODIUM BICARBONATE 8.4% 75 MEQ in SODIUM CHLORIDE 0.45% 1,000 ML 100 MEQ IV CONT (22:32)
[2025-04-29] VITALS (10 sets, daily range): BP systolic 129–151; BP diastolic 53–80; PULSE 44–60; RESP 14–18; TEMP 36.4–37.1; O2SAT 94–100; BMI 16.4
[2025-04-29 01:27] LABS: Urine Eos QC 2nd Tech Confirmed
[2025-04-29 07:01] LABS: Hematocrit 22.3 % (42.0-52.0); Hemoglobin 7.1 g/dL (14.0-18.0); Immature Granulocyte Percent A 0.2 % (0-0.5); Lymphocytes Absolute Auto 1.35 K/mm3 (0.9-3.2); Mean Corpuscular HGB Conc 31.8 g/dl (32-36); Mean Corpuscular Hemoglobin 27.0 pg (26-34); Mean Corpuscular Volume 84.8 fl (80-100); Nucleated Red Blood Cells Absolute Auto 0.000 K/mm3 (0.0-0.012); Nucleated Red Blood Cells Perc 0.0 % (0.0-0.2); Platelet Count Result 253 k/mm3 (150-375); Red Blood Count 2.63 M/mm3 (4.6-6.20); White Blood Count 6.5 K/mm3 (4.5-10.0)
[2025-04-29 07:13] LABS: Iron 42 ug/dL (49-181)
[2025-04-29 07:23] LABS: Percent Iron Saturation 20 % (20-50)
[2025-04-29 07:25] LABS: Albumin Level 3.7 g/dL (3.5-5.1); Anion Gap 10 mmol/L (4-12); Blood Urea Nitrogen 74 mg/dL (9-20); Calcium 9.4 mg/dL (8.4-10.2); Carbon Dioxide 16 mmol/L (22-30); Chloride 114 mmol/L (98-107); Creatine Kinase 80 U/L (55-170); Estimated CRCL calculation 10 ml/min; Estimated Glomerular Filt Rate 19; Glucose 76 mg/dL (65-110); Magnesium 2.6 mg/dL (1.6-2.3); Potassium 5.5 mmol/L (3.4-5.0); Sodium 140 mmol/L (137-145)
[2025-04-29 07:45] LABS: Thyroid Stimulating Hormone Reflex 2.410 uIU/mL (0.465-4.68)
[2025-04-29 07:49] LABS: Ferritin 130.00 ng/mL (11.1-264)
[2025-04-29 08:36] LABS: Vitamin B12 704.0 pg/mL (239-931)
[2025-04-29] MEDS: SODIUM BICARBONATE 8.4% 75 MEQ in SODIUM CHLORIDE 0.45% 1,000 ML 100 MEQ IV CONT ×2 (09:15→19:46)
--- NOTE | 2025-04-29 11:41 | PC.NURSE ---
Per POA request patient made a DNR
--- NOTE | 2025-04-29 12:57 | P.CONNP_ITS ---
Assessment and Plan Assessment and plan (1) Acute kidney injury: Code(s): N17.9 - Acute kidney failure, unspecified Status: Acute Assessment and Plan: * as noted by admission labs * suspect multifactorial etiology: * prerenal factors * poor oral/fluid intake * concurrent GIORGIO-I use * anemia * other(?) * evaluation to date noted: * urine electrolytes prerenal (by FeUrea) * urine eosinophils negative * mild proteinuria * CPK normal * improvement noted with current intervention/therapy * follow trend of repeat labs and UOP (2) Stage 3b chronic kidney disease: Code(s): N18.32 - Chronic kidney disease, stage 3b Status: Acute Assessment and Plan: * baseline creatinine runs around 1.7 - 2.3mg/dl in the last few years * this causes him to fluctuate b/w CKD stage 3b and stage 4 * suspect due to his hypertension, vascular disease (CVA, hyperlipidemia and smoking), and age-related change * outpatient testing noted a negative serological profile aside a positive SPEP and UPEP which showed a positive M-spike with 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?(referred to Hem/Onc but never went) (3) Hyperkalemia: Code(s): E87.5 - Hyperkalemia Status: Acute Assessment and Plan: * due to YAMILEX/ARF and GIORGIO-I use * s/p medical therapy * follow trend of K+ (4) Metabolic acidosis: Code(s): E87.20 - Acidosis, unspecified Status: Acute Assessment and Plan: * due to YAMILEX/ARF * worsened with normal saline IVFs * switched to bicarb fluids to compensate * follow CO2 levels (5) Essential (primary) hypertension: Code(s): I10 - Essential (primary) hypertension Status: Chronic Assessment and Plan: * reasonable control at this time * lisinopril on hold due to #1 and #3 * follow trend of hemodynamics (6) Anemia: Qualifiers: Anemia type: unspecified type Qualified Code(s): D64.9 - Anemia, unspecified Code(s): D64.9 - Anemia, unspecified Status: Acute Assessment and Plan: * as noted by admission H/H * refused PRBC transfusion * anemia studies noted * consider empiric Epogen * follow trend of H/H (7) Dementia: Qualifiers: Dementia type: unspecified type Code(s): F03.90 - Unspecified dementia, unspecified severity, without behavioral disturbance, psychotic disturbance, mood disturbance, and anxiety Status: Chronic Assessment and Plan: * as suggested by outpatient Neurology visit * resume aricept + namenda if able (8) Failure to thrive: Qualifiers: Failure to thrive age range: in adult Qualified Code(s): R62.7 - Adult failure to thrive Status: Acute Assessment and Plan: * as noted by by ex- over the last 2 months (with worsening 2 days prior to admission) * noted change in code status to DNR * care coordination following to determine level of care/goals of therapy/discharge planning I will continue to follow the patient with you while he remains hospitalized and make further recommendations as deemed necessary. Thank you for allowing me to participate in the care of this patient. L History of Present Illness Reason for Consult Consult date: 04/29/25 Reason for consult: acute renal failure (on chronic kidney disease) Chief Complaint Chief complaint: failure to thrive,acute renal failure,hyperkalemia History of Present Illness Narrative: The patient is an 80-year-old male with a past medical history as outlined below who presented to [facility] Emergency Room for further evaluation of poor oral intake and concerns for failure to thrive. A great majority of the history that I have obtained is from review of the electronic medical record as well as discussion with the physician / nurses involved in the patient's care as well as my personal recollection of the patient since I cm in the office for management of his chronic kidney disease As is difficult to get much history from the patient in general possibly worsened by his underlying dementia. Apparently, over the last 2 months, the patient's overall health/condition has been slowly deteriorating. However, in the last few days, this seems to have clinically worsened in conjunction with his symptoms of poor oral intake and refusal to take anything by mouth with regard to nutrition for last 2-3 days. The patient was self is unable to elaborate as to why he has not been eating and he denies any specific symptoms with regard to nausea, vomiting, abdominal pain, diarrhea, fevers, chills, shortness of breath, or chest pain. Given these symptoms and the acute worsening in the last 48 hours, EMS was called and it was noted that he was slightly bradycardic in the 40s and was hypoglycemic with a blood sugar of 60. He was given oral glucose and subsequently transferred to the emergency room for further assessment. Workup and evaluation emergency room demonstrated the patient be hemodynamically stable and in no acute distress. Routine blood work was done which demonstrated a normal white blood cell count, hemoglobin of 6.9, normal coagulation studies, sodium 136, potassium 6.5, creatinine of 3.9 with an associated GFR 15, glucose of 100, lactic acid of 1.2. His EKG shows sinus bradycardia with a heart rate in the 40s no associated ischemic changes. Given his hyperkalemia, he was given medical management for this issue and given his suspected volume depletion/ dehydration given his poor oral intake for last 2 or 3 days, he was initiated on IV fluids as well. Further intervention with regard to a blood transfusion was not done as the patient refused this intervention and it would seem that he did not really want much of anything done in general but as he is was noted to be a full code. He was subsequently admitted to the hospital for further evaluation therapy. Since his admission, his renal function has slightly improved with IV fluid therapy and holding his GIORGIO-inhibitor. However, he is still not eating and drinking but it should be noted that his hemoglobin has improved somewhat to 7.1 without any specific intervention. Renal consultation was requested due to his acute kidney injury/acute renal failure on top of his baseline chronic kidney disease. The patient is somewhat familiar to me as I take care of him in the outpatient setting with regard to management of his chronic kidney disease. His baseline creatinine runs around 1.7-2.3 mg/dL and is thought to be secondary to a combination of his hypertension vascular disease, and age-related change. His outpatient evaluation for his kidney disease was significant for a paraproteinemia by SPEP/UPEP and serum/ urine immunofixation and he was referred to Hematology/Oncology for further evaluation of this issue but the patient did not want to pursue such therapy. Currently, at the time my evaluation, he appears to be in no acute distress. Review of Systems 2 Review of Systems: As per HPI. [facility] Past Medical History Medical History Left-sided cerebrovascular accident (CVA) Dementia Pulmonary embolism Elevated parathyroid hormone Elevated PSA Obesity Anemia BPH w/o urinary obs/LUTS Chronic kidney disease, stage 3 Essential (primary) hypertension Gout, unspecified Mixed hyperlipidemia Tobacco use disorder Family History Family History Sibling Patient's sister is in good health Patient's brother is in good health Father Family history of malignant neoplasm Patient's father is Mother Family history of malignant neoplasm Patient's mother is Social History Social History Smoking packs per day: 0.25 Smoking cigarettes per day: 5.0 Years smoked: 35 Smoking pack-years: 8.75 Smoking status: Current every day smoker Second hand tobacco smoke exposure: No Alcohol intake: unknown Substance use: unknown Substance use type: does not use Do You Feel Safe in your Home?: Yes Lack of Transportation: No Lack of Food: Sometimes True Current Housing: I Have Housing Concerned About Future Housing: No Difficulty Paying Gas/Electric Bills: No Difficulty Paying for Meds: No Currently Unemployed: No Education: High School Diploma/GED Difficulty w/ Childcare or Family Care: No Occupation/Education: retired Gender identity (if verbalized by the patient): Male Spiritual care concerns: No Meds Home Medications and Allergies Home Medications ?Medication ?Instructions ?Recorded ?Confirmed ?Type cholecalciferol (vitamin D3) 125 125 mcg PO DAILY 05/22/24 04/07/25 History mcg (5,000 unit) tablet ferrous sulfate 325 mg (65 mg 325 mg PO DAILY 05/22/24 04/07/25 History iron) tablet (iron) lisinopril 10 mg tablet 10 mg PO DAILY #90 tabs 07/21/24 04/07/25 Rx metoprolol succinate 50 mg See Rx Instructions .Route 10/27/24 04/07/25 Rx tablet,extended release 24 hr .COMPLEX #90 tabs nifedipine 30 mg tablet,extended 30 mg PO DAILY #30 tabs 12/02/24 04/07/25 Rx release donepezil 10 mg tablet 10 mg PO QHS #90 tabs 02/12/25 04/07/25 Rx memantine 10 mg tablet 10 mg PO BID #60 tabs 02/12/25 04/07/25 Rx mirtazapine 15 mg tablet 15 mg PO DAILY #90 tabs 04/28/25 04/28/25 Rx Allergies Allergy/AdvReac Type Severity Reaction Status Date / Time No Known Allergies Allergy Mild Verified 04/28/25 15:27 Vital Signs Vital Signs Temp Pulse Resp BP Pulse Ox O2 Del Method 04/29/25 12:00 49 L 04/29/25 08:00 50 L 04/29/25 08:00 Room Air 04/29/25 06:00 98.8 F 52 L 16 139/80 100 04/29/25 04:00 45 L 04/29/25 00:00 44 L 04/28/25 22:00 96.6 F L 65 16 122/77 100 04/28/25 20:00 40 L 04/28/25 20:00 Room Air 04/28/25 19:21 40 L 14 171/71 H 95 Exam 2 Narrative: GENERAL APPEARANCE: thin, frail and elderly male in no acute distress HEENT: normocephalic, atraumatic, normal conjunctiva and sclera, nares patient NECK: no lymphadenopathy, thyromegaly, or JVD MOUTH: normal lips, teeth, and gums CARDIOVASCULAR: RRR, normal S1 and S2, no rub detected RESPIRATORY: clear to auscultation bilaterally ABDOMEN: soft, nontender, nondistended, positive bowel sounds present; + colostomy EXTREMITIES: no evidence of cyanosis, clubbing, or edema; loss of muscle mass noted (extremities, chest, and abdomen) NEUROLOGICAL: awake but confused; no focal deficits noted Results Lab Results 04/29/25 06:06 04/29/25 15:08 Lab results: Most recent lab results Calcium 8.7 mg/dL (8.4-10.2) 04/29/25 15:08 Phosphorus 3.6 mg/dL (2.5-4.5) 04/29/25 06:06 Magnesium 2.6 mg/dL (1.6-2.3) H 04/29/25 06:06 Urine Creatinine 71.8 mg/dL 04/28/25 19:34 Urine Creatinine Cancelled 04/28/25 19:34
--- NOTE | 2025-04-29 13:49 | PM.IMPN ---
Progress Note: A&P Assessment and Plan (1) Failure to thrive: Qualifiers: Failure to thrive age range: in adult Qualified Code(s): R62.7 - Adult failure to thrive Status: Acute Assessment and Plan: The patient has had general decline over the last 2 months that has significantly worsened in the last 2 days. Patient has had little to no p.o. intake which prompted evaluation in the ED. per documentation in the ED, provider discussed hospice care with the patient's POA (his ex-) and the patient. Ex declined hospice care at this time. Reviewed chart -> per most recent note from his primary from visit yesterday on 04/27, the patient declined majority of treatments and interventions or referrals. Patient also noted to be anemic in the ED and declined blood transfusion. POA was contacted by staff and code status was changed to DNR. Oral intake improved. Care coordination consulted for discharge planning. (2) Anemia of chronic disease: Code(s): D63.8 - Anemia in other chronic diseases classified elsewhere Status: Acute Assessment and Plan: Hemoglobin 6.9 upon admission. Patient declined blood transfusion in the ED. Anemia workup showing Iron 42, TIBC 212 with ISat 20%. Ferritin 130. B12, folate and TSH levels normal. Repeat Hgb 7.1. Monitor HH and transfuse if allowed by patient (3) Hyperkalemia: Code(s): E87.5 - Hyperkalemia Status: Acute Assessment and Plan: K 6.5 upon admission. Given calcium, insulin/dextrose, soda bicarbonate and IV fluids in the ED with repeat at 5.1. Potassium this moring 5.5. Change diet to renal diet. Revert back to regular diet once potassium better. Monitor on tele (4) Acute on chronic renal failure: Code(s): N17.9 - Acute kidney failure, unspecified; N18.9 - Chronic kidney disease, unspecified Status: Acute Assessment and Plan: Renal function upon admission showed a creatinine of 3.48, BUN 75, GFR 17. Baseline Cr 1.7-2.3. Cr better today at 3.23 Nephrology consulted and appreciate their input He remains on IV bicarb fluid Monitor (5) Dementia: Qualifiers: Dementia type: unspecified type Code(s): F03.90 - Unspecified dementia, unspecified severity, without behavioral disturbance, psychotic disturbance, mood disturbance, and anxiety Status: Chronic Assessment and Plan: Alert but confused. Per external med rec, patient appears to be on memantine. Will continue once medication list is verified with patient's POA. Patient currently unable to confirm medications. (6) Essential (primary) hypertension: Code(s): I10 - Essential (primary) hypertension Status: Chronic Assessment and Plan: Patient's blood pressure was reviewed on 04/29 Blood pressure remains elevated at times. Clarify home meds Will continue to monitor. Plan DVT Prophylaxis: SCDs Code Status: DNR Subjective Date/time seen: 04/29/25 13:49 Interval history: 80yo male with dementia, PE, anemia, BPH, CKD, CVA and HTN here for failure to thrive. Assuming care. Chart reviewed. Patient is feeling better. He is alert but confused so history is unreliable. His [id number] changed his code status to DNR today. Review of Systems Review of Systems: ROS unobtainable: Yes unobtainable due to mental status Exam Narrative: AF 98.8 139/80 50 16 100% ra Gen - very thin male in NARD Chest - clear anteriorly. ribs are clearly seen with los of chest wall soft tissue CV - RRR S1/S2. Tele showing occasional bradycardia. Abd - Soft, scaphoid, colostomy in place. Ext - No pedal edema. poor muscle mass. Neuro - Alert but confused Psych - Nml mood and affect Skin - Warm and dry Objective Data Vital Signs Vital Signs: Vital Signs - 24 hr 04/28/25 14:15 04/28/25 14:43 04/28/25 14:47 Temperature 97.6 F Pulse Rate 43 L 44 L 43 L Respiratory Rate 15 16 16 Blood Pressure 153/38 H 165/46 H 176/47 H Pulse Oximetry 97 96 Oxygen Delivery 04/28/25 14:54 04/28/25 14:56 04/28/25 15:01 Temperature Pulse Rate 44 L 51 L Respiratory Rate Blood Pressure 171/52 H Pulse Oximetry 94 92 Oxygen Delivery Room Air 04/28/25 15:16 04/28/25 15:31 04/28/25 15:32 Temperature Pulse Rate 53 L 54 L 52 L Respiratory Rate 19 12 17 Blood Pressure 179/59 H 171/78 H Pulse Oximetry 97 99 95 Oxygen Delivery 04/28/25 15:45 04/28/25 15:46 04/28/25 16:00 Temperature Pulse Rate 53 L 56 L Respiratory Rate 12 Blood Pressure 186/68 H Pulse Oximetry 95 95 96 Oxygen Delivery 04/28/25 16:01 04/28/25 16:16 04/28/25 16:30 Temperature Pulse Rate 55 L 53 L Respiratory Rate 19 19 Blood Pressure 148/64 H 171/73 H Pulse Oximetry 97 97 94 Oxygen Delivery 04/28/25 16:31 04/28/25 16:45 04/28/25 16:46 Temperature Pulse Rate 50 L 36 L 43 L Respiratory Rate 17 12 Blood Pressure 186/70 H 184/68 H Pulse Oximetry 97 96 94 Oxygen Delivery 04/28/25 17:01 04/28/25 17:16 04/28/25 17:32 Temperature Pulse Rate Respiratory Rate Blood Pressure 169/77 H 185/76 H 153/75 H Pulse Oximetry 100 95 100 Oxygen Delivery 04/28/25 17:45 04/28/25 17:47 04/28/25 17:48 Temperature Pulse Rate 45 L 49 L 49 L Respiratory Rate Blood Pressure 173/56 H Pulse Oximetry 100 95 96 Oxygen Delivery 04/28/25 18:00 04/28/25 18:01 04/28/25 19:21 Temperature Pulse Rate 45 L 46 L 40 L Respiratory Rate 14 Blood Pressure 196/73 H 171/71 H Pulse Oximetry 95 98 95 Oxygen Delivery 04/28/25 20:00 04/28/25 20:00 04/28/25 22:00 Temperature 96.6 F L Pulse Rate 40 L 65 Respiratory Rate 16 Blood Pressure 122/77 Pulse Oximetry 100 Oxygen Delivery Room Air 04/29/25 00:00 04/29/25 04:00 04/29/25 06:00 Temperature 98.8 F Pulse Rate 44 L 45 L 52 L Respiratory Rate 16 Blood Pressure 139/80 Pulse Oximetry 100 Oxygen Delivery 04/29/25 08:00 04/29/25 08:00 Temperature Pulse Rate 50 L Respiratory Rate Blood Pressure Pulse Oximetry Oxygen Delivery Room Air Intake/Output Intake/Output: Intake & Output 04/26/25 04/27/25 04/28/25 04/29/25 23:59 23:59 23:59 23:59 Intake Total 900 1653.7 Output Total 550 Balance 900 1103.7 Meds/Results Medications: Active Medications Generic Name Dose Route Start Last Admin Trade Name Patrick PRN Reason Stop Dose Admin Acetaminophen 650 mg 04/28/25 17:21 Acetaminophen 325 Mg Tablet PO Q4H PRN Mild Pain (1-3) or Fever Sodium Bicarbonate 75 meq/ 1,075 mls @ 100 mls/hr 04/28/25 22:00 04/29/25 09:15 Sodium Chloride IV CONT 100 mls/hr .[id number] Administration Ondansetron HCl 4 mg 04/28/25 17:21 Ondansetron Inj 4 Mg/2 Ml Vial IV PUSH Q4H PRN Nausea Labs Labs: Laboratory Results - last 24 hr 04/28/25 04/28/25 04/28/25 14:22 14:40 14:45 WBC 5.2 RBC 2.58 L Hgb 6.9 L* Hct 22.2 L MCV 86.0 MCH 26.7 MCHC 31.1 L RDW 15.5 H Plt Count 251 MPV 9.2 Immature Gran % (Auto) 0.2 Neut % (Auto) 74.8 H Lymph % (Auto) 19.0 [place] % (Auto) 5.8 Eos % (Auto) 0.0 Baso % (Auto) 0.2 Lymph # (Auto) 0.98 [place] # (Auto) 0.3 Eos # (Auto) 0.0 Baso # (Auto) 0.0 Abs Immat Gran (auto) 0.01 Absolute Neuts (auto) 3.9 Absolute Nucleated RBC 0.000 Nucleated RBC % 0.0 PT 14.9 H INR 1.2 APTT 29.8 Sodium 136 L Potassium 6.5 H* Chloride 113 H Carbon Dioxide 12 L Anion Gap 11 BUN 78 H D Creatinine 3.90 H Estim Creat Clear Calc 9 Estimated GFR 15 L Glucose 100 POC Capillary Glucose 62 L 36 L* Lactic Acid Calcium 9.6 Phosphorus Magnesium Iron TIBC % Saturation Ferritin Total Bilirubin 0.4 AST 19 ALT 15 Alkaline Phosphatase 73 Total Creatine Kinase Total Protein 7.3 Albumin 3.9 Vitamin B12 Folate TSH (Reflex) Urine Color Urine Appearance Urine pH Ur Specific [place] Urine Protein Urine Glucose (UA) Urine Ketones Ur Blood (Man) Urine Nitrate Urine Bilirubin Urine Urobilinogen Leukocyte Esterase Rfl Urine RBC Urine WBC Ur Squamous Epith Cells Urine Bacteria Urine Casts Urine Eosinophils U Random Total Protein Ur Random Sodium Ur Random Urea Urine Creatinine Protein/Creat Ratio 2 04/28/25 04/28/25 04/28/25 15:09 15:23 15:31 WBC RBC Hgb Hct MCV MCH MCHC RDW Plt Count MPV Immature Gran % (Auto) Neut % (Auto) Lymph % (Auto) [place] % (Auto) Eos % (Auto) Baso % (Auto) Lymph # (Auto) [place] # (Auto) Eos # (Auto) Baso # (Auto) Abs Immat Gran (auto) Absolute Neuts (auto) Absolute Nucleated RBC Nucleated RBC % PT INR APTT Sodium Potassium Chloride Carbon Dioxide Anion Gap BUN Creatinine Estim Creat Clear Calc Estimated GFR Glucose POC Capillary Glucose 76 102 Lactic Acid 1.2 Calcium Phosphorus Magnesium Iron TIBC % Saturation Ferritin Total Bilirubin AST ALT Alkaline Phosphatase Total Creatine Kinase Total Protein Albumin Vitamin B12 Folate TSH (Reflex) Urine Color Urine Appearance Urine pH Ur Specific [place] Urine Protein Urine Glucose (UA) Urine Ketones Ur Blood (Man) Urine Nitrate Urine Bilirubin Urine Urobilinogen Leukocyte Esterase Rfl Urine RBC Urine WBC Ur Squamous Epith Cells Urine Bacteria Urine Casts Urine Eosinophils U Random Total Protein Ur Random Sodium Ur Random Urea Urine Creatinine Protein/Creat Ratio 2 04/28/25 04/28/25 04/28/25 16:55 19:34 19:34 WBC RBC Hgb Hct MCV MCH MCHC RDW Plt Count MPV Immature Gran % (Auto) Neut % (Auto) Lymph % (Auto) [place] % (Auto) Eos % (Auto) Baso % (Auto) Lymph # (Auto) [place] # (Auto) Eos # (Auto) Baso # (Auto) Abs Immat Gran (auto) Absolute Neuts (auto) Absolute Nucleated RBC Nucleated RBC % PT INR APTT Sodium Potassium Chloride Carbon Dioxide Anion Gap BUN Creatinine Estim Creat Clear Calc Estimated GFR Glucose POC Capillary Glucose 319 H Lactic Acid Calcium Phosphorus Magnesium Iron TIBC % Saturation Ferritin Total Bilirubin AST ALT Alkaline Phosphatase Total Creatine Kinase Total Protein Albumin Vitamin B12 Folate TSH (Reflex) Urine Color Urine Appearance Urine pH Ur Specific [place] Urine Protein Urine Glucose (UA) Urine Ketones Ur Blood (Man) Urine Nitrate Urine Bilirubin Urine Urobilinogen Leukocyte Esterase Rfl Urine RBC Urine WBC Ur Squamous Epith Cells Urine Bacteria Urine Casts Urine Eosinophils U Random Total Protein 42 39 Ur Random Sodium 56 Ur Random Urea 464 Urine Creatinine 71.8 Protein/Creat Ratio 2 04/28/25 04/28/25 04/28/25 19:34 19:35 20:41 WBC RBC Hgb Hct MCV MCH MCHC RDW Plt Count MPV Immature Gran % (Auto) Neut % (Auto) Lymph % (Auto) [place] % (Auto) Eos % (Auto) Baso % (Auto) Lymph # (Auto) [place] # (Auto) Eos # (Auto) Baso # (Auto) Abs Immat Gran (auto) Absolute Neuts (auto) Absolute Nucleated RBC Nucleated RBC % PT INR APTT Sodium 136 L Potassium 5.1 H Chloride 114 H Carbon Dioxide 8 L Anion Gap 14 H BUN 75 H Creatinine 3.48 H Estim Creat Clear Calc 10 Estimated GFR 17 L Glucose 206 H POC Capillary Glucose Lactic Acid Calcium 9.4 Phosphorus Magnesium 2.8 H Iron TIBC % Saturation Ferritin Total Bilirubin AST ALT Alkaline Phosphatase Total Creatine Kinase Total Protein Albumin Vitamin B12 Folate TSH (Reflex) Urine Color Yellow Urine Appearance Clear Urine pH 5.0 Ur Specific [place] 1.016 Urine Protein 1+ H Urine Glucose (UA) 3+ H Urine Ketones Negative Ur Blood (Man) Negative Urine Nitrate Negative Urine Bilirubin Negative Urine Urobilinogen 0.2 Leukocyte Esterase Rfl Negative Urine RBC 0-2 Urine WBC 0-5 Ur Squamous Epith Cells None seen Urine Bacteria None seen Urine Casts 3-5 Urine Eosinophils U Random Total Protein Ur Random Sodium Ur Random Urea Urine Creatinine Cancelled Protein/Creat Ratio 2 0.58 H 04/29/25 04/29/25 01:15 06:06 WBC 6.5 RBC 2.63 L Hgb 7.1 L Hct 22.3 L MCV 84.8 MCH 27.0 MCHC 31.8 L RDW 15.2 H Plt Count 253 MPV 9.9 Immature Gran % (Auto) 0.2 Neut % (Auto) 69.2 Lymph % (Auto) 20.9 [place] % (Auto) 9.5 H Eos % (Auto) 0.0 Baso % (Auto) 0.2 Lymph # (Auto) 1.35 [place] # (Auto) 0.6 Eos # (Auto) 0.0 Baso # (Auto) 0.0 Abs Immat Gran (auto) 0.01 Absolute Neuts (auto) 4.5 Absolute Nucleated RBC 0.000 Nucleated RBC % 0.0 PT INR APTT Sodium 140 Potassium 5.5 H Chloride 114 H Carbon Dioxide 16 L Anion Gap 10 BUN 74 H Creatinine 3.23 H Estim Creat Clear Calc 10 Estimated GFR 19 L Glucose 76 POC Capillary Glucose Lactic Acid Calcium 9.4 Phosphorus 3.6 Magnesium 2.6 H Iron 42 L TIBC 212 L % Saturation 20 Ferritin 130.00 Total Bilirubin AST ALT Alkaline Phosphatase Total Creatine Kinase 80 Total Protein Albumin 3.7 Vitamin B12 704.0 Folate 4.9 TSH (Reflex) 2.410 Urine Color Urine Appearance Urine pH Ur Specific [place] Urine Protein Urine Glucose (UA) Urine Ketones Ur Blood (Man) Urine Nitrate Urine Bilirubin Urine Urobilinogen Leukocyte Esterase Rfl Urine RBC Urine WBC Ur Squamous Epith Cells Urine Bacteria Urine Casts Urine Eosinophils None seen U Random Total Protein Ur Random Sodium Ur Random Urea Urine Creatinine Protein/Creat Ratio 2
[2025-04-29 15:49] LABS: Anion Gap 9 mmol/L (4-12); Blood Urea Nitrogen 68 mg/dL (9-20); Calcium 8.7 mg/dL (8.4-10.2); Carbon Dioxide 17 mmol/L (22-30); Chloride 112 mmol/L (98-107); Estimated CRCL calculation 12 ml/min; Estimated Glomerular Filt Rate 23; Glucose 128 mg/dL (65-110); Potassium 4.8 mmol/L (3.4-5.0); Sodium 138 mmol/L (137-145)
--- NOTE | 2025-04-29 17:48 | PC.NURSE ---
Attempted to call POA to confirm home medication was unable to reach them at this time.
[2025-04-30] VITALS (14 sets, daily range): BP systolic 130–176; BP diastolic 54–69; PULSE 48–65; RESP 16–18; TEMP 36.3–36.7; O2SAT 92–100
[2025-04-30 05:42] LABS: Mean Corpuscular HGB Conc 31.7 g/dl (32-36); Mean Corpuscular Hemoglobin 26.7 pg (26-34); Mean Corpuscular Volume 84.2 fl (80-100); Platelet Count Result 191 k/mm3 (150-375); Red Blood Count 2.21 M/mm3 (4.6-6.20); White Blood Count 4.6 K/mm3 (4.5-10.0)
[2025-04-30 05:43] LABS: Hematocrit 18.6 % (42.0-52.0); Hemoglobin 5.9 g/dL (14.0-18.0)
[2025-04-30] MEDS: SODIUM BICARBONATE 8.4% 75 MEQ in SODIUM CHLORIDE 0.45% 1,000 ML 100 MEQ IV CONT (05:48)
[2025-04-30 05:58] LABS: Albumin Level 3.0 g/dL (3.5-5.1); Anion Gap 6 mmol/L (4-12); Blood Urea Nitrogen 59 mg/dL (9-20); Calcium 8.3 mg/dL (8.4-10.2); Carbon Dioxide 19 mmol/L (22-30); Chloride 113 mmol/L (98-107); Estimated CRCL calculation 14 ml/min; Estimated Glomerular Filt Rate 27; Glucose 81 mg/dL (65-110); Magnesium 2.3 mg/dL (1.6-2.3); Potassium 5.0 mmol/L (3.4-5.0); Sodium 138 mmol/L (137-145)
[2025-04-30] MEDS: SODIUM CHLORIDE 0.9% IV 250 ML 30 ML IV CONT (09:52)
--- NOTE | 2025-04-30 12:26 | PM.IMPN ---
Progress Note: A&P Assessment and Plan (1) Failure to thrive: Qualifiers: Failure to thrive age range: in adult Qualified Code(s): R62.7 - Adult failure to thrive Status: Acute Assessment and Plan: The patient has had general decline over the last 2 months that has significantly worsened in the last 2 days. Patient had little to no oral intake which prompted evaluation in the ED. Per documentation in the ED, provider discussed hospice care with the patient's POA (his ex-) and the patient. Ex declined hospice care at this time. Reviewed chart -> per most recent note from his primary from visit yesterday on 04/27, the patient declined majority of treatments and interventions or referrals. Patient also noted to be anemic in the ED and declined blood transfusion. POA was contacted by staff and code status was changed to DNR. Oral intake improved eating 75-100% of meals. Care coordination consulted for discharge planning with plans for discharge home once he is improved. (2) Anemia of chronic disease: Code(s): D63.8 - Anemia in other chronic diseases classified elsewhere Status: Acute Assessment and Plan: Hemoglobin 6.9 upon admission. Patient declined blood transfusion in the ED. Anemia workup showing Iron 42, TIBC 212 with ISat 20%. Ferritin 130. B12, folate and TSH levels normal. Repeat Hgb dropped to 5.9 today. No obvious acute blood loss. This was not repeated and family agreed to blood transfusion. PRBC x1U ordered. Check stool guaiac. Add PPI. Monitor HH and transfuse if allowed by patient/family (3) Hyperkalemia: Code(s): E87.5 - Hyperkalemia Status: Acute Assessment and Plan: K 6.5 upon admission. Given calcium, insulin/dextrose, soda bicarbonate and IV fluids in the ED with repeat at 5.1. Diet changed to renal diet. Potassium this morning 5.0. Revert back to regular diet once potassium better. Okay to stop tele. (4) Acute on chronic renal failure: Code(s): N17.9 - Acute kidney failure, unspecified; N18.9 - Chronic kidney disease, unspecified Status: Acute Assessment and Plan: Renal function upon admission showed a creatinine of 3.48, BUN 75, GFR 17. Baseline Cr 1.7-2.3. Cr better today at 2.35 and close to baseline Nephrology consulted and appreciate their input He remains on IV bicarb fluid Monitor (5) Dementia: Qualifiers: Dementia type: unspecified type Code(s): F03.90 - Unspecified dementia, unspecified severity, without behavioral disturbance, psychotic disturbance, mood disturbance, and anxiety Status: Chronic Assessment and Plan: Alert but confused with known hx of dementia. Home medication list was verified with patient's POA. Resume namenda and donepezil. (6) Essential (primary) hypertension: Code(s): I10 - Essential (primary) hypertension Status: Chronic Assessment and Plan: Patient's blood pressure was reviewed on 04/30 Blood pressure remains elevated at times. On lisinopril, metoprolol and nifedipine at home. Will resume nifedipine but hold others. Will continue to monitor. Plan DVT Prophylaxis: SCDs Code Status: DNR Subjective Date/time seen: 04/30/25 12:26 Interval history: 80yo male with dementia, PE, anemia, BPH, CKD, CVA and HTN here for failure to thrive. Patient is alert but confused so history is unreliable. His [id number] was contacted earlier this morning and has agreed for patient to receive a blood transfusion. He is eating better per staff Review of Systems Review of Systems: ROS unobtainable: Yes unobtainable due to mental status Exam Narrative: AF 97.7 130/62 59 18 92% ra Gen - very thin male in NARD Chest - clear anteriorly. ribs are clearly seen with loss of chest wall soft tissue CV - RRR S1/S2. Tele showing no significant dysrhythmias Abd - Soft, scaphoid, colostomy in place. Ext - No pedal edema. poor muscle mass. Neuro - Alert but confused Psych - Nml mood and affect Skin - Warm and dry Objective Data Vital Signs Vital Signs: Vital Signs - 24 hr 04/29/25 14:00 04/29/25 14:29 04/29/25 16:00 Temperature 97.6 F Pulse Rate 50 L 60 Respiratory Rate 14 Blood Pressure 129/60 Pulse Oximetry 94 Oxygen Delivery Room Air 04/29/25 19:36 04/29/25 20:00 04/29/25 20:17 Temperature Pulse Rate 51 L Respiratory Rate Blood Pressure Pulse Oximetry 100 Oxygen Delivery Room Air 04/29/25 22:14 04/30/25 00:00 04/30/25 04:00 Temperature 98.4 F Pulse Rate 52 L 48 L 53 L Respiratory Rate 18 Blood Pressure 151/53 H Pulse Oximetry 100 Oxygen Delivery 04/30/25 06:00 04/30/25 08:00 04/30/25 10:05 Temperature 97.3 F L 98.1 F Pulse Rate 65 54 L Respiratory Rate 18 16 Blood Pressure 140/54 L 156/69 H Pulse Oximetry 100 92 Oxygen Delivery Room Air 04/30/25 10:30 Temperature 97.7 F Pulse Rate 59 L Respiratory Rate 18 Blood Pressure 130/62 Pulse Oximetry 92 Oxygen Delivery Intake/Output Intake/Output: Intake & Output 04/27/25 04/28/25 04/29/25 04/30/25 23:59 23:59 23:59 23:59 Intake Total 900 3629.4 1403.3 Output Total 960 800 Balance 900 2669.4 603.3 Meds/Results Medications: Active Medications Generic Name Dose Route Start Last Admin Trade Name Freq PRN Reason Stop Dose Admin Acetaminophen 650 mg 04/28/25 17:21 Acetaminophen 325 Mg Tablet PO Q4H PRN Mild Pain (1-3) or Fever Sodium Bicarbonate 75 meq/ 1,075 mls @ 75 mls/hr 04/28/25 22:00 04/30/25 05:48 Sodium Chloride IV CONT 100 mls/hr .[id number] XIMENA Administration Sodium Chloride 250 mls @ 30 mls/hr 04/30/25 06:22 04/30/25 09:52 Normal Saline Iv IV CONT 04/30/25 14:41 30 mls/hr .[id number] STA Administration Ondansetron HCl 4 mg 04/28/25 17:21 Ondansetron Inj 4 Mg/2 Ml Vial IV PUSH Q4H PRN Nausea Labs Labs: Laboratory Results - last 24 hr 04/29/25 04/30/25 04/30/25 15:08 05:17 06:38 WBC 4.6 RBC 2.21 L Hgb 5.9 L* Hct 18.6 L* MCV 84.2 MCH 26.7 MCHC 31.7 L RDW 15.4 H Plt Count 191 MPV 9.7 Sodium 138 138 Potassium 4.8 5.0 Chloride 112 H 113 H Carbon Dioxide 17 L 19 L Anion Gap 9 6 BUN 68 H 59 H Creatinine 2.71 H 2.35 H Estim Creat Clear Calc 12 14 Estimated GFR 23 L 27 L Glucose 128 H 81 Calcium 8.7 8.3 L Phosphorus 2.8 Magnesium 2.3 Albumin 3.0 L Blood Type B Negative Antibody Screen Negative Crossmatch See Detail
--- NOTE | 2025-04-30 14:15 | P.PNNP_ITS ---
Progress Note: A&P Assessment and Plan (1) Acute kidney injury: Code(s): N17.9 - Acute kidney failure, unspecified Status: Acute Assessment and Plan: * improvement noted * as noted by admission labs * suspect multifactorial etiology: * prerenal factors * poor oral/fluid intake * concurrent GIORGIO-I use * anemia * other(?) * evaluation to date noted: * urine electrolytes prerenal (by FeUrea) * urine eosinophils negative * mild proteinuria * CPK normal * improvement noted with current intervention/therapy * follow trend of repeat labs and UOP (2) Stage 3b chronic kidney disease: Code(s): N18.32 - Chronic kidney disease, stage 3b Status: Acute Assessment and Plan: * baseline creatinine runs around 1.7 - 2.3mg/dl in the last few years * this causes him to fluctuate b/w CKD stage 3b and stage 4 * suspect due to his hypertension, vascular disease (CVA, hyperlipidemia and smoking), and age-related change * outpatient testing noted a negative serological profile aside a positive SPEP and UPEP which showed a positive M-spike with 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?(referred to Hem/Onc but refused to go...) (3) Hyperkalemia: Code(s): E87.5 - Hyperkalemia Status: Acute Assessment and Plan: * resolving * due to YAMILEX/ARF and GIORGIO-I use * s/p medical therapy * follow trend of K+ (4) Metabolic acidosis: Code(s): E87.20 - Acidosis, unspecified Status: Acute Assessment and Plan: * improving * due to YAMIELX/ARF * worsened with normal saline IVFs * on bicarb fluids to compensate * wean off as tolerated * follow CO2 levels (5) Essential (primary) hypertension: Code(s): I10 - Essential (primary) hypertension Status: Chronic Assessment and Plan: * running a bit high now * lisinopril on hold due to #1 and #3 * slow re-introduce other BP medications.. * follow trend of hemodynamics (6) Anemia: Qualifiers: Anemia type: unspecified type Qualified Code(s): D64.9 - Anemia, unspecified Code(s): D64.9 - Anemia, unspecified Status: Acute Assessment and Plan: * as noted by admission H/H * further drop in H/H noted today (04/30) * PRBC transfusion per protocol * anemia studies noted * dose with Epogen while hospitalized * follow trend of H/H (7) Dementia: Qualifiers: Dementia type: unspecified type Code(s): F03.90 - Unspecified dementia, unspecified severity, without behavioral disturbance, psychotic disturbance, mood disturbance, and anxiety Status: Chronic Assessment and Plan: * as suggested by outpatient Neurology visit * resume aricept + namenda (8) Failure to thrive: Qualifiers: Failure to thrive age range: in adult Qualified Code(s): R62.7 - Adult failure to thrive Status: Acute Assessment and Plan: * as noted by by ex- over the last 2 months (with worsening 2 days prior to admission) * noted change in code status to DNR * better oral intake noted by nursing Will continue to follow. Subjective Date/time seen: 04/30/25 14:15 Interval history: Follow-up for acute kidney injury/acute renal failure on chronic kidney disease. Renal function/creatinine improving if not close to baseline with current therapy/interventions; low H/H this AM and received PRBC transfusion earlier today; still remains confused but nursing staff reports that he is eating and drinking better; no apparent distress voiced at the time of my visit. Exam Narrative: General: thin/frail elderly male in NAD Heart: normal S1 and S2; no rub Lungs: clear to auscultation Abdomen: soft, nontender, nondistended, positive bowel sounds; + colostomy Extremities: no cyanosis or clubbing; no edema Skin: warm and dry; muscle atrophy noted Objective Data Vital Signs Vital Signs: Vital Signs Temp Pulse Resp BP Pulse Ox O2 Del Method 04/30/25 14:00 98.1 F 59 L 16 176/68 H 92 04/30/25 13:30 97.5 F L 51 L 16 172/68 H 92 04/30/25 12:30 97.7 F 53 L 16 162/54 H 100 04/30/25 12:00 57 L 04/30/25 11:30 97.6 F 61 16 138/63 100 04/30/25 10:30 97.7 F 59 L 18 130/62 92 04/30/25 10:05 98.1 F 54 L 16 156/69 H 92 04/30/25 08:00 51 L 04/30/25 08:00 Room Air 04/30/25 06:00 97.3 F L 65 18 140/54 L 100 04/30/25 04:00 53 L 04/30/25 00:00 48 L 04/29/25 22:14 98.4 F 52 L 18 151/53 H 100 04/29/25 20:17 100 04/29/25 20:00 51 L 04/29/25 19:36 Room Air Intake/Output Intake/Output: Intake & Output 04/27/25 04/28/25 04/29/25 04/30/25 23:59 23:59 23:59 23:59 Intake Total 900 3629.4 1993.3 Output Total 960 800 Balance 900 2669.4 1193.3 Meds/Results Medications: Active Medications Generic Name Dose Route Start Last Admin Trade Name Freq PRN Reason Stop Dose Admin Acetaminophen 650 mg 04/28/25 17:21 Acetaminophen 325 Mg Tablet PO Q4H PRN Mild Pain (1-3) or Fever Donepezil HCl 10 mg 04/30/25 21:00 Donepezil Hcl 10 Mg Tablet PO QHS XIMENA Ferrous Sulfate 325 mg 04/30/25 13:30 04/30/25 16:52 Ferrous Sulfate [address] PO 325 mg DAILY@0800 XIMENA Administration Sodium Bicarbonate 75 meq/ 1,075 mls @ 75 mls/hr 04/28/25 22:00 04/30/25 05:48 Sodium Chloride IV CONT 100 mls/hr .[id number] XIMENA Administration Memantine 10 mg 04/30/25 13:30 04/30/25 16:52 Memantine 10 Mg Tablet PO 10 mg Q12HR XIMENA Administration Mirtazapine 15 mg 04/30/25 21:00 Mirtazapine 15 Mg Tablet PO HS XIMENA Nifedipine 30 mg 04/30/25 13:30 04/30/25 16:52 Nifedipine 30 Mg Tab.Er.24 PO 30 mg DAILY XIMENA Administration Ondansetron HCl 4 mg 04/28/25 17:21 Ondansetron Inj 4 Mg/2 Ml Vial IV PUSH Q4H PRN Nausea Pantoprazole Sodium 40 mg 04/30/25 21:00 Pantoprazole 40 Mg Tablet PO Q12HR XIMENA Vitamin D 125 mcg 04/30/25 13:30 04/30/25 16:53 Cholecalciferol (Vitamin D3) 125 Mcg (5,000 Units) Tablet PO 125 mcg DAILY XIMENA Administration Labs Labs: Laboratory Results - last 24 hr 04/30/25 05:17 WBC 4.6 Hgb 5.9 L* Hct 18.6 L* Plt Count 191 Sodium 138 Potassium 5.0 Chloride 113 H Carbon Dioxide 19 L Anion Gap 6 BUN 59 H Creatinine 2.35 H Estim Creat Clear Calc 14 Estimated GFR 27 L Glucose 81 Calcium 8.3 L Phosphorus 2.8 Magnesium 2.3 Albumin 3.0 L
[2025-04-30] MEDS: FERROUS SULFATE 325 MG TABLET DR PO (16:52)
[2025-04-30] MEDS: MEMANTINE 10 MG TABLET PO ×2 (16:52→20:15)
[2025-04-30] MEDS: CHOLECALCIFEROL (VITAMIN D3) 125 MCG (5,000 UNITS) TABLET PO (16:53)
[2025-04-30 16:58] LABS: Hematocrit 24.4 % (42.0-52.0); Hemoglobin 8.0 g/dL (14.0-18.0)
[2025-04-30 17:53] LABS: IFOB Positive Control Positive; Immunochemical Fecal Occult Bl Positive (N)
[2025-04-30] MEDS: PANTOPRAZOLE 40 MG TABLET PO (20:15)
[2025-04-30] MEDS: DONEPEZIL HCL 10 MG TABLET PO (20:15)
[2025-04-30] MEDS: MIRTAZAPINE 15 MG TABLET PO (20:15)
[2025-05-01] MEDS: SODIUM BICARBONATE 8.4% 75 MEQ in SODIUM CHLORIDE 0.45% 1,000 ML 30 MEQ IV CONT (00:33)
[2025-05-01 05:04] VITALS: BP 149/60; PULSE 53; RESP 16; TEMP 36.6; O2SAT 98
[2025-05-01 05:55] LABS: Hematocrit 25.1 % (42.0-52.0); Hemoglobin 8.0 g/dL (14.0-18.0); Immature Granulocyte Percent A 0.3 % (0-0.5); Lymphocytes Absolute Auto 1.58 K/mm3 (0.9-3.2); Mean Corpuscular HGB Conc 31.9 g/dl (32-36); Mean Corpuscular Hemoglobin 27.5 pg (26-34); Mean Corpuscular Volume 86.3 fl (80-100); Nucleated Red Blood Cells Absolute Auto 0.000 K/mm3 (0.0-0.012); Nucleated Red Blood Cells Perc 0.0 % (0.0-0.2); Platelet Count Result 176 k/mm3 (150-375); Red Blood Count 2.91 M/mm3 (4.6-6.20); White Blood Count 6.0 K/mm3 (4.5-10.0)
[2025-05-01 06:18] LABS: Albumin Level 2.9 g/dL (3.5-5.1); Anion Gap 5 mmol/L (4-12); Blood Urea Nitrogen 53 mg/dL (9-20); Calcium 8.4 mg/dL (8.4-10.2); Carbon Dioxide 21 mmol/L (22-30); Chloride 115 mmol/L (98-107); Estimated CRCL calculation 16 ml/min; Estimated Glomerular Filt Rate 30; Glucose 70 mg/dL (65-110); Magnesium 2.3 mg/dL (1.6-2.3); Potassium 5.0 mmol/L (3.4-5.0); Sodium 141 mmol/L (137-145)
--- NOTE | 2025-05-01 08:55 | P.PNNP_ITS ---
Progress Note: A&P Assessment and Plan (1) Acute kidney injury: Code(s): N17.9 - Acute kidney failure, unspecified Status: Acute Assessment and Plan: * improvement noted (if not back to baseline) * as noted by admission labs * suspect multifactorial etiology: * prerenal factors * poor oral/fluid intake * concurrent GIORGIO-I use * anemia * other(?) * evaluation to date noted: * urine electrolytes prerenal (by FeUrea) * urine eosinophils negative * mild proteinuria * CPK normal * improvement noted with current intervention/therapy * follow trend of repeat labs and UOP (2) Stage 3b chronic kidney disease: Code(s): N18.32 - Chronic kidney disease, stage 3b Status: Acute Assessment and Plan: * baseline creatinine runs around 1.7 - 2.3mg/dl in the last few years * this causes him to fluctuate b/w CKD stage 3b and stage 4 * suspect due to his hypertension, vascular disease (CVA, hyperlipidemia and smoking), and age-related change * outpatient testing noted a negative serological profile aside a positive SPEP and UPEP which showed a positive M-spike with 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?(referred to Hem/Onc but refused to go...) (3) Hyperkalemia: Code(s): E87.5 - Hyperkalemia Status: Acute Assessment and Plan: * resolving * due to YAMILEX/ARF and GIORGIO-I use * s/p medical therapy * follow trend of K+ (4) Metabolic acidosis: Code(s): E87.20 - Acidosis, unspecified Status: Acute Assessment and Plan: * improving * due to YAMILEX/ARF * worsened with normal saline IVFs * on bicarb fluids to compensate * wean off as tolerated and start oral sodium bicarbonate * follow CO2 levels (5) Essential (primary) hypertension: Code(s): I10 - Essential (primary) hypertension Status: Chronic Assessment and Plan: * doing a bit better * lisinopril on hold due to #1 and #3 * slow re-introduce other BP medications... * follow trend of hemodynamics (6) Anemia: Qualifiers: Anemia type: unspecified type Qualified Code(s): D64.9 - Anemia, unspecified Code(s): D64.9 - Anemia, unspecified Status: Acute Assessment and Plan: * as noted by admission H/H * further drop in H/H noted (on 04/30) * PRBC transfusion per protocol * anemia studies noted * follow trend of H/H (7) Dementia: Qualifiers: Dementia type: unspecified type Code(s): F03.90 - Unspecified dementia, unspecified severity, without behavioral disturbance, psychotic disturbance, mood disturbance, and anxiety Status: Chronic Assessment and Plan: * as suggested by outpatient Neurology visit * resume aricept + namenda (8) Failure to thrive: Qualifiers: Failure to thrive age range: in adult Qualified Code(s): R62.7 - Adult failure to thrive Status: Acute Assessment and Plan: * as noted by by ex- over the last 2 months (with worsening 2 days prior to admission) * noted change in code status to DNR * however, better oral intake noted by nursing * patient not interested in further testing Will continue to follow. L Subjective Date/time seen: 05/01/25 08:55 Interval history: Follow-up for acute kidney injury/acute renal failure on chronic kidney disease. Renal function/creatinine continues to improve with ongoing supportive therapy with reasonable urine output noted; no other acute issues/events overnight or earlier this morning; H/H better following PRBC transfusion yesterday; eating/drinking better in general. Exam 2 Narrative: General: thin/frail elderly male in NAD Heart: normal S1 and S2; no rub Lungs: clear to auscultation Abdomen: soft, nontender, nondistended, positive bowel sounds; + colostomy Extremities: no cyanosis or clubbing; no edema Skin: warm and intact; muscle atrophy noted Objective Data Vital Signs Vital Signs: Vital Signs Temp Pulse Resp BP Pulse Ox O2 Del Method 05/01/25 08:00 Room Air 05/01/25 05:04 97.9 F 53 L 16 149/60 H 98 04/30/25 20:17 98.1 F 56 L 18 158/66 H 95 04/30/25 20:00 54 L 04/30/25 16:00 48 L 04/30/25 14:00 98.1 F 59 L 16 176/68 H 92 04/30/25 13:30 97.5 F L 51 L 16 172/68 H 92 04/30/25 12:30 97.7 F 53 L 16 162/54 H 100 Intake/Output Intake/Output: Intake & Output 04/28/25 04/29/25 04/30/25 05/01/25 23:59 23:59 23:59 23:59 Intake Total 900 3629.4 3858.3 710 Output Total 871 913 1407 Balance 900 2669.4 2958.3 -415 Meds/Results Medications: Active Medications Generic Name Dose Route Start Last Admin Trade Name Freq PRN Reason Stop Dose Admin Acetaminophen 650 mg 04/28/25 17:21 Acetaminophen 325 Mg Tablet PO Q4H PRN Mild Pain (1-3) or Fever Donepezil HCl 10 mg 04/30/25 21:00 04/30/25 20:15 Donepezil Hcl 10 Mg Tablet PO 10 mg QHS XIMENA Administration Ferrous Sulfate 325 mg 04/30/25 13:30 05/01/25 09:00 Ferrous Sulfate [address] PO 325 mg DAILY@0800 XIMENA Administration Sodium Bicarbonate 75 meq/ 1,075 mls @ 30 mls/hr 04/28/25 22:00 05/01/25 00:33 Sodium Chloride IV CONT 30 mls/hr .Q24H XIMENA Administration Memantine 10 mg 04/30/25 13:30 05/01/25 09:00 Memantine 10 Mg Tablet PO 10 mg Q12HR XIMENA Administration Mirtazapine 15 mg 04/30/25 21:00 04/30/25 20:15 Mirtazapine 15 Mg Tablet PO 15 mg HS XIMENA Administration Nifedipine 30 mg 04/30/25 13:30 05/01/25 09:00 Nifedipine 30 Mg Tab.Er.24 PO 30 mg DAILY XIMENA Administration Ondansetron HCl 4 mg 04/28/25 17:21 Ondansetron Inj 4 Mg/2 Ml Vial IV PUSH Q4H PRN Nausea Pantoprazole Sodium 40 mg 04/30/25 21:00 05/01/25 08:59 Pantoprazole 40 Mg Tablet PO 40 mg Q12HR XIMENA Administration Vitamin D 125 mcg 04/30/25 13:30 05/01/25 08:59 Cholecalciferol (Vitamin D3) 125 Mcg (5,000 Units) Tablet PO 125 mcg DAILY XIMENA Administration Labs Labs: Laboratory Tests 05/01/25 05:40 05/01/25 05:40 Calcium 8.4 Phosphorus 2.8 Magnesium 2.3 Albumin 2.9 L
[2025-05-01] MEDS: PANTOPRAZOLE 40 MG TABLET PO (08:59)
[2025-05-01] MEDS: CHOLECALCIFEROL (VITAMIN D3) 125 MCG (5,000 UNITS) TABLET PO (08:59)
[2025-05-01] MEDS: FERROUS SULFATE 325 MG TABLET DR PO (09:00)
[2025-05-01] MEDS: MEMANTINE 10 MG TABLET PO (09:00)
--- NOTE | 2025-05-01 10:38 | PCNFU ---
Nutrition Follow-Up Complete: Severe protein calorie malnutrition related to loss of appetite as evidenced by intakes <50% needs >1 month; weight loss 11%/1 month and 17%/2 months; severe muscle wasting and fat loss Goal:Intakes <50% Patient is meeting goal. No new goal. Pt current nutrition is Renal Dialysis with Nepro BID. Last recorded weight is 44.7 kg, no new weight to report. Bowel Motility: No BM reported. Labs Reviewed: Cr 2.1, BUN 53, Hct 25.1, Hgb 8.0 Meds Noted:Vit D, Remeron, Protonix. Skin:WNL Additional Notes: Patient remains on Renal Dialysis diet. Oral intake > 75% of meals. Diet supplements of Nepro providing an additional 420 kcal and 19 gm protein. Agree with diet orders. Monitoring intakes, weights, labs, supplement tolerance, plan of care Follow up in 5 days
--- NOTE | 2025-05-01 11:15 | P.DS_ITS ---
DS: Admitting Diagnosis Discharge Date 05/01/25 Admitting Diagnosis Failure to thrive DS: Discharge Diagnosis Discharge Diagnosis (1) Failure to thrive: Qualifiers: Failure to thrive age range: in adult Qualified Code(s): R62.7 - Adult failure to thrive Status: Acute (2) Anemia of chronic disease: Code(s): D63.8 - Anemia in other chronic diseases classified elsewhere Status: Acute (3) Hyperkalemia: Code(s): E87.5 - Hyperkalemia Status: Acute (4) Acute on chronic renal failure: Code(s): N17.9 - Acute kidney failure, unspecified; N18.9 - Chronic kidney disease, unspecified Status: Acute (5) Dementia: Qualifiers: Dementia type: unspecified type Code(s): F03.90 - Unspecified dementia, unspecified severity, without behavioral disturbance, psychotic disturbance, mood disturbance, and anxiety Status: Chronic (6) Essential (primary) hypertension: Code(s): I10 - Essential (primary) hypertension Status: Chronic DS: Summary Hospital Course Reason for hospitalization: 80yo male with dementia, PE, anemia, BPH, CKD, CVA and HTN here for failure to thrive. Please see H&P for details. Hospital Course: The patient has had general decline over the last 2 months that has significantly worsened in the last 2 days. Patient had little to no oral intake which prompted evaluation in the ED. Per documentation in the ED, provider discussed hospice care with the patient's POA (his ex-) and the patient. Ex declined hospice care at this time. Reviewed chart -> per most recent note from his primary from visit yesterday on 04/27, the patient declined majority of treatments and interventions or referrals. Patient also noted to be anemic in the ED with hgb 6.9 and declined blood transfusion. Anemia workup showing Iron 42, TIBC 212 with ISat 20%. Ferritin 130. B12, folate and TSH levels normal. Repeat Hgb dropped to 5.9 and family agreed to blood transfusion. PRBC x1U transfused and Hgb climbed to 8.0 and remained stable. Stool guaiac was positive but patient and family declined further evaluation. Protonix added. Renal function upon admission showed a creatinine of 3.48, BUN 75, GFR 17. Baseline Cr 1.7-2.3. Potassium was 6.5 upon admission felt related to the YAMILEX. He was given calcium, insulin/dextrose, soda bicarbonate and IV fluids in the ED with improvement. Diet changed to renal diet. He was treated with IV fluids. Nephrology was consulted. Cr better today at 2.1 which is within his baseline. Patient was alert but confused with known hx of dementia. Home medication list was verified with patient's POA and he was resumed on namenda and donepezil. POA was contacted by staff and code status was changed to DNR. Here, he had clinical improvement with improved oral intake with eating 75-100% of meals. Care coordination consulted for discharge planning with plans for discharge home once he is improved. He and family refused SNF and home health. Discharge instructions discussed with family and all questions answered. He overall did well and was able to be discharged home on 05/01/25. Status at Discharge Cognitive/behavioral status at discharge: stable Time Spent with Patient Time attestation: Total time spent providing and/or coordinating discharge services: 35 minutes Time spent: Greater than 30 minutes Exam Narrative: AF 97.9 149/60 53 16 98% ra Gen - very thin male in NARD Chest - clear anteriorly. loss of chest wall soft tissue CV - RRR S1/S2 Abd - Soft, scaphoid, colostomy in place with brown stool in bag. Ext - No pedal edema. poor muscle mass. Neuro - Alert but confused Psych - Nml mood and affect Skin - Warm and dry DS: Data Data Completed and Pending Labs on day of discharge: Labs from last 24 hours 05/01/25 04/30/25 04/30/25 05:40 16:51 16:35 WBC 6.0 RBC 2.91 L Hgb 8.0 L 8.0 L Hct 25.1 L 24.4 L MCV 86.3 MCH 27.5 MCHC 31.9 L RDW 14.7 H Plt Count 176 MPV 9.8 Immature Gran % (Auto) 0.3 Neut % (Auto) 60.9 Lymph % (Auto) 26.6 [place] % (Auto) 11.8 H Eos % (Auto) 0.2 Baso % (Auto) 0.2 Lymph # (Auto) 1.58 [place] # (Auto) 0.7 H Eos # (Auto) 0.0 Baso # (Auto) 0.0 Abs Immat Gran (auto) 0.02 Absolute Neuts (auto) 3.6 Absolute Nucleated RBC 0.000 Nucleated RBC % 0.0 Sodium 141 Potassium 5.0 Chloride 115 H Carbon Dioxide 21 L Anion Gap 5 BUN 53 H Creatinine 2.11 H Estim Creat Clear Calc 16 Estimated GFR 30 L Glucose 70 Calcium 8.4 Phosphorus 2.8 Magnesium 2.3 Albumin 2.9 L Stl Occult Blood (IFOB) Positive H Crossmatch 04/30/25 06:38 WBC RBC Hgb Hct MCV MCH MCHC RDW Plt Count MPV Immature Gran % (Auto) Neut % (Auto) Lymph % (Auto) [place] % (Auto) Eos % (Auto) Baso % (Auto) Lymph # (Auto) [place] # (Auto) Eos # (Auto) Baso # (Auto) Abs Immat Gran (auto) Absolute Neuts (auto) Absolute Nucleated RBC Nucleated RBC % Sodium Potassium Chloride Carbon Dioxide Anion Gap BUN Creatinine Estim Creat Clear Calc Estimated GFR Glucose Calcium Phosphorus Magnesium Albumin Stl Occult Blood (IFOB) Crossmatch See Detail Discharge Plan Discharge Attending physician on discharge: Castro Lee Consulting providers: Tisha Vegas Discharging Clinician: Castro Lee Anticipated Discharge Date/Time: 05/01/25 11:24 Patient Disposition: Home Activity: as tolerated Diet: renal Discharge Instructions: Check blood pressure 1 to 2 times a day. Record and bring into your doctor for review. Call your doctor if your blood pressure is greater than 180/110. Take precautions to avoid falls. Rise slowly from a lying or sitting position. Pause before standing or walking. Contact your doctor or call 911 and come to the Emergency Room if you have weakness, lightheadedness with standing or other worrisome symptoms. Avoid NSAIDs (ibuprofen, naproxen, Aleve). Tylenol is safe to take. Follow-up with your primary care provider in 1-2 weeks. Please call for appointment. Follow-up with Nephrology in 3-4 weeks. Please call for an appointment. Thank you for using [facility] for your health care needs. Patient Instructions: Antibiotic Form Patient Language: Thai Stand Alone Forms: General Discharge Information Follow-up/Referrals: Aníbal Boyce MD [Primary Care Provider] - Call for Appointment Tisha Vegas MD [Physician] - Call for Appointment Discharge Medications: New pantoprazole 40 mg Tablet,Delayed Release (Dr/Ec) 40 mg PO DAILY Qty: 30 0RF sodium bicarbonate 325 mg tablet 325 mg PO DAILY Qty: 30 0RF Continued nifedipine 30 mg tablet extended release 30 mg PO DAILY Qty: 30 6RF Rx Instructions: Stop amlodipine when you start this medication ferrous sulfate [iron] 325 mg (65 mg iron) tablet 325 mg PO DAILY cholecalciferol (vitamin D3) 125 mcg (5,000 unit) tablet 125 mcg PO DAILY mirtazapine 15 mg tablet 15 mg PO DAILY Qty: 90 0RF memantine 10 mg tablet 10 mg PO BID Qty: 60 6RF Rx Instructions: to start after the titration pack donepezil 10 mg tablet 10 mg PO QHS Qty: 90 1RF Discontinued lisinopril 10 mg tablet 10 mg PO DAILY Qty: 90 1RF metoprolol succinate 50 mg tablet extended release 24 hr See Rx Instructions .ROUTE .COMPLEX Qty: 90 0RF Dose Instruction: TAKE 1 TABLET BY MOUTH DAILY Rx Instructions: TAKE 1 TABLET BY MOUTH DAILY Date of admission: 04/28/25 17:21 Primary Care Provider: Aníbal Boyce Admitting Provider: Alex Lou Attending physician on admission: Alex Lou Condition: Guarded Prognosis Hospitalist MIPS Heart Failure (Exclusion) Patient has history of Heart Transplant or Left Ventricular Assistive Device?: No IF YES, STOP HERE Heart Failure (Qualifier) Patient has current or prior documentation of LVEF less than or equal to 40%, or mod/servere depressed LVSF?: No IF NO, STOP HERE
== END 2025-05-01 13:16 | disposition home or self-care (01) | DRG 683 ==
LOC: ANHED 17:13 → ANH3MED 18:45
PROVIDERS: Internal Medicine Nephrology; Student in an Organized Health Care Education/Training Program; Admitting Provider Internal Medicine; Emergency Provider Family Medicine; PCP Family Medicine; Visit Provider Internal Medicine
DX: N17.9 Acute kidney failure, unspecified (principal); Z68.1 Body mass index [BMI] 19.9 or less, adult; R62.7 Adult failure to thrive; N18.32 Chronic kidney disease, stage 3b; I12.9 Hypertensive chronic kidney disease with stage 1 through stage 4 chronic kidney disease, or unspecified chronic kidney disease; D63.8 Anemia in other chronic diseases classified elsewhere; E87.5 Hyperkalemia; E78.2 Mixed hyperlipidemia; N40.0 Benign prostatic hyperplasia without lower urinary tract symptoms; M10.9 Gout, unspecified; F03.90 Unspecified dementia, unspecified severity, without behavioral disturbance, psychotic disturbance, mood disturbance, and anxiety; Z86.711 Personal history of pulmonary embolism; Z86.73 Personal history of transient ischemic attack (TIA), and cerebral infarction without residual deficits; Z87.891 Personal history of nicotine dependence
CPT/HCPCS: 36415; 36430; 80048; 80053; 80069; 81001; 81050; 82274; 82550; 82570; 82607; 82728; 82746; 82948; 83540; 83550; 83605; 83735; 84156; 84300; 84443; 84540; 85014; 85018; 85025; 85027; 85610; 85730; 85999; 86850; 86900; 86901; 86923; 93005; 96374; 96375; 97161; 97165; 99285; A9270; J0612; J1815; J7030; J7050; P9016